=== PATIENT | male | born 1960 | race Caucasian/White ===

== ENCOUNTER → 2016-08-21 | Outpatient (CLI) | payer OTHER | END | disposition home or self-care (01) | LOC: C.LABMFLN 12:04 | PROVIDERS: ATTEND Family Medicine | DX: Z11.59 Encounter for screening for other viral diseases (principal) ==

== ENCOUNTER → 2016-12-17 | Outpatient (CLI) | payer OTHER ==
[2016-12-17 18:28] LABS: ALT/SGPT 49 U/L (12-78); BLOOD UREA NITROGEN 22 mg/dl (7-18); CALCIUM 9.4 mg/dl (8.5-10.1); CARBON DIOXIDE 29 mmol/L (21-32); CHLORIDE 97 mmol/L (98-107); GLUCOSE 312 mg/dl (70-99); POTASSIUM 4.4 mmol/L (3.5-5.1); SODIUM 129 mmol/L (136-145)
[2016-12-17 18:37] LABS: BETA-HYDROXYBUTYRATE 1.25 mg/dL (0.2-2.81)
[2016-12-17 18:59] LABS: RATIO 94.7 mcg/mg (0-30.0)
[2016-12-18 06:14] LABS: ESTIMATED AVERAGE GLUCOSE 243 mg/dl; HA1C FLAG Normal (Normal)
== END | disposition home or self-care (01) ==
LOC: C.LABMFLN 15:44
PROVIDERS: ATTEND Family Medicine
DX: Z00.00 Encounter for general adult medical examination without abnormal findings (principal); E78.01 Familial hypercholesterolemia; I10 Essential (primary) hypertension; E11.65 Type 2 diabetes mellitus with hyperglycemia

== ENCOUNTER 2020-04-25 17:38 | Inpatient (IN) ==
--- NOTE | 2020-04-25 18:31 | Emergency Department Note ---
Impression & Plan Atherosclerotic peripheral vascular disease with intermittent claudication, Left leg weakness, Numbness of left foot ED Provider Note Provider: Cal Bhat MD DATE OF SERVICE:04/25/2020 CHIEF COMPLAINT: Leg numbness and weakness HISTORY OF PRESENT ILLNESS: Patient is a 60-year-old gentleman history of type 2 diabetes, atrial fibrillation on Lovenox currently with recent coronavirus inf ection and SVT presenting here today referred by vascular surgery. Patient was evaluated on April 22 in the emergency department and was here for extended period overnight getting work-up for some left leg pain and some slight weakness with dorsiflexion. Patient states he was evaluated here overnight with multiple studies and sent home with follow-up with his PCP and then vascular. Patient s tates about 2 days ago he had worsening numbness of his left foot to the ankle and received a call today from his vascular surgeon advising him to come here for evaluation this morning and likely need for procedure for revascularization. Patient states compliant his Lovenox last at 10 AM this morning. He denies any trauma. States it does hurt a little bit when he stands the left heel but he says he cannot feel his left toes or front of his left foot. States he feels somewhat cool. States some achy pain in the left calf. Patient states his other extremities are doing okay. REVIEW OF SYSTEMS: A total of 10 review of systems was obtained and negative except as stated above in the HPI. PAST MEDICAL HISTORY: As noted above MEDICATIONS: Reviewed home medication list. On Lovenox. SOCIAL HISTORY: Non-smoker. Lives at home. PHYSICAL EXAM: GENERAL: alert and oriented in no acute distress on stretcher Head: normocephalic and atraumatic EYES: No injection, discharge or icterus. NECK: Trachea midline. Supple. LUNGS: Airway patent. No retractions. Breath sounds clear with good air entry bilaterally. HEART: Irregular rate and rhythm SKIN: Acyanotic, warm, dry, without rashes EXTREMITIES: Right upper extremity is mildly swollen diffusely. Right lower extremity without significant swelling or tenderness. Left lower extremity with numbness fairly circumferentially from the distal left calf and to the left foot. There is some decreased capillary refill in the left toes. There is no dopplerable or palpable DP or PT pulses of the left foot. No open wound or black or ischemic findings are noted. NEUROLOGICAL:No aphasia. No facial droop or slurred speech. Patient again has some decreased sensation in the left foot to the distal left leg as above. The other extremities without significant neuropathy appreciated. Patient does have some limited to no movement of the toes at this time but 3/5 strength with plantar flexion of the left foot. 1/5 strength with dorsiflexion. EK bpm in atrial fibrillation without PVC noted. No acute ST segment elevation or significant depression is noted. QRS within normal interval limits. CONTINUOUS CARDIAC MONITORING: was ordered and showed a heart rate of 98 bpm in atrial fibrillation Patient's laboratory studies and imaging reviewed. Differential includes DVT, vascular abnormality, musculoskeletal, infection, joint effusion, trauma, lymphedema, idiopathic, CHF, as well as other pathologies. IMPRESSION/MEDICAL DECISION MAKING: Reviewed medical record and multiple studies from 3 days ago. Patient was evaluated with multiple laboratory tests and studies including venous and arterial ultrasound of the left lower leg as well as CTs and brain MRI. Negative brain MRI for acute intracranial abnormality. There was some discussion due to decreased flow in the left arterial waveforms and it appears from records this was discussed with Dr. Ma of interventional cardiology and was referred for outpatient follow-up. Patient now states increasing numbness and some coolness of his foot and vascular surgery, Dr. Hidalgo, reviewed request from his PCPs office for his complaint and referred him here today for likely revascularization tomorrow. Patient does not have significant dopplerable pulses at this time and some decreased capillary refill of the left foot. There is no evidence of gangrene or open wound. There is no crepitus appreciated. Basic labs and preop studies were completed and a repeat Covid test given his recent positive status was ordered in anticipation of procedure. Did call and discussed with Dr. Hidalgo of vascular surgery the findings on exam here today including discussing his numbness and undopplerable pulses in his left lower leg at this point. He requested a heparin drip be started and the patient admitted made n.p.o. overnight for procedure in the morning. Patient s tates compliance with his home Lovenox and in discussion with pharmacy will start a no bolus heparin drip. A type and screen was sent to the lab. Covid test here was negative. No significant leukocytosis or anemia is noted. Patient has no other significant complaint at this time of other neurological deficit. There is no traumatic findings no believe x-ray be indicated this time. Do not feel antibiotics indicated & I doubt there is any acute infection. DIAGNOSIS: Peripheral vascular atherosclerotic disease of the left lower extremity, left foot numbness, left leg weakness DISPOSITION: Hospitalist will evaluate Patient was agreeable with this plan. Past Med/Surg History Medical History Acute kidney injury Allergic rhinitis Anticoagulant long-term use Arteriosclerosis of coronary artery Atrial fibrillation Benign essential hypertension Chronic insomnia Diabetes mellitus type 2, uncontrolled Dyslipidemia Dyspnea on exertion Essential familial hypercholesterolemia Insomnia Poorly controlled blood pressure Testicular mass Surgical History (Updated 05/10/19 @ 13:15 by Essie Su MA) No pertinent past surgical history Family History (Updated 11/19/18 @ 14:03 by Sherry Muhammad) Father Cardiovascular disease Diabetes Hypertension Sister Cardiovascular disease Grandmother Diabetes Hypertension Social History Smoking Status: Never smoker Age Started Using Tobacco: 18; Age Quit Using Tobacco: 46; Second Hand Exposure: No; Hx Alcohol Use: No Hx Substance Use: No Preferred Language: Romanian Communication Ability: Effective Forensic Anthropologist Required: No marital status: Current Living Situation: Spouse Feels Safe at Home: Yes Childhood Exposure to Second-Hand Smoke: Yes Seatbelt Use: sometimes Sunscreen Use: No Allergies Allergies Allergy/AdvReac Type Severity Reaction Status Date / Time pravastatin AdvReac Unknown Muscle Verified 04/22/20 23:30 Tightness simvastatin AdvReac Unknown Muscle Verified 04/22/20 23:30 Tightness Home Meds Home Medications Medication Instructions Recorded Confirmed aspirin [Aspirin Low Dose] 81 mg PO DAILY 04/18/20 04/22/20 Previous Rx's Medication Instructions Recorded enoxaparin [Lovenox] 120 mg SUBCUT Q12H 14 Days #22.4 ml 04/18/20 tramadol 50 mg tablet 50 mg PO TID PRN #15 tab 04/20/20 diltiazem HCl 240 mg 240 mg PO QAM #30 cap 04/21/20 capsule,extended release 24 hr, controlled insulin NPH isoph U-100 human 100 20 - 40 unit SUBCUT BID #15 ml 04/21/20 unit/mL (3 mL) subcutaneous pen insulin regular human 100 unit/mL 10 - 30 unit SUBCUT TID #10 ml 04/21/20 injection solution lisinopril 20 mg tablet 20 mg PO BID #30 tab 04/21/20 metoprolol tartrate 100 mg tablet 100 mg PO BID #60 tab 04/21/20 warfarin 5 mg tablet See Rx Instructions .ROUTE 04/21/20 .COMPLEX #45 tab Results & Data (ED) Vital Signs Vital Signs - 24 hr 04/25/20 17:40 04/25/20 18:41 04/25/20 19:08 Temperature 36.6 C Temperature Source Oral Pulse Rate 101 H 103 H 96 H Pulse Rate from SpO2 Sensor 106 H 101 H Respiratory Rate 18 20 21 Respiratory Effort / Characteristics Non-Labored Respiratory Depth Normal Blood Pressure 121/77 141/75 H Blood Pressure Mean 91 90 Pulse Oximetry 94 94 93 Oxygen Delivery Method Room Air Room Air Sepsis Recent Fever Within 48 Hours No Sepsis New/Unexplained Change in Mental Status No Sepsis Action Taken by Nursing No Action Required Laboratory Data Result diagrams: 04/25/20 18:56 04/25/20 18:56 Lab Results 04/25/20 04/25/20 04/25/20 Range/Units 18:30 18:56 18:56 WBC 8.43 (4.8-10.8) K/uL RBC 4.86 (4.7-6.1) M/uL Hgb 13.9 L (14.0-18.0) g/dL Hct 40.6 L (42-52) % MCV 83.5 (80-100) fL MCH 28.6 (25-34) pg MCHC 34.2 (32-36) g/dL RDW Std Deviation 41.5 (36.4-46.3) fL RDW Coeff of Scott 13.6 (11.5-14.5) % Plt Count 265 (130-400) K/uL MPV 10.1 (7.4-10.4) fL Immature Gran % (Auto) 0.2 % Neut % (Auto) 69.4 % Lymph % (Auto) 15.1 % Eddy % (Auto) 14.0 % Eos % (Auto) 1.1 % Baso % (Auto) 0.2 % Neut # (Auto) 5.85 (1.4-6.5) K/uL Lymph # (Auto) 1.27 (1.2-3.4) K/uL Eddy # (Auto) 1.18 H (0.11-0.59) K/uL Eos # (Auto) 0.09 (0-0.5) K/uL Baso # (Auto) 0.02 (0-0.2) K/uL Immature Gran # (Auto) 0.02 (0.00-0.02) K/uL PT 10.3 (9.0-12.0) Seconds INR 1.0 (0.9-1.1) APTT 31.6 H (21.0-31.0) Seconds PTT Ratio 1.1 SARS-CoV-2 Ag (Rapid) Negative (Negative) Administered Medications Heparin Sodium/Dextrose (Heparin Sodium/Dextrose) 25,000 units in 500 mls @ 0.02 mls/hr IV .Q24H [facility]; Protocol Stop: 05/25/20 18:29 Last Admin: 04/25/20 19:06 Dose: 1,750 units/hr, 35 mls/hr Documented by: [id number] Cosigned by: [id number] Discharge Plan Visit Data Chief Complaint: Leg Injury/Pain Stated Complaint: L LEG PAIN, DR REF ED Provider: Cal Bhat Discharge Problem: Atherosclerotic peripheral vascular disease with intermittent claudication, Left leg weakness, Numbness of left foot Forms Stand Alone Forms: My [facility] [employer] Prescriptions Prescriptions: No Action tramadol 50 mg tablet 50 mg PO TID PRN (Reason: severe pain) Qty: 15 RF: 0 diltiazem HCl [DILT-XR] 240 mg capsule,ext.rel 24h degradable 240 mg PO QAM Qty: 30 RF: 5 Humulin N NPH Insulin KwikPen 100 unit/mL (3 mL) insulin pen 20 - 40 unit SUBCUT BID Qty: 15 RF: 5 Novolin R Regular U-100 Insuln 100 unit/mL solution 10 - 30 unit subcut TID Qty: 10 RF: 5 lisinopril 20 mg tablet 20 mg PO BID Qty: 30 RF: 5 metoprolol tartrate 100 mg tablet 100 mg PO BID Qty: 60 RF: 5 warfarin 5 mg tablet See Rx Instructions .ROUTE .COMPLEX Qty: 45 RF: 0 aspirin [Aspirin Low Dose] 81 mg Tablet,Delayed Release (Dr/Ec) 81 mg PO DAILY RF: 0 enoxaparin [Lovenox] 120 mg/0.8 mL syringe 120 mg subcut Q12H 14 Days Qty: 22.4 RF: 0 Referrals Referrals: Nadir Lowry MD [Primary Care Provider] -
[2020-04-25] MEDS: HEPARIN SODIUM/DEXTROSE 25,000 UNITS/500 ML BAG IV SCH (19:06)
[2020-04-25 19:08] LABS: Basophils # (auto) 0.02 K/uL (0-0.2); Basophils % (auto) 0.2 %; Eosinophils # (auto) 0.09 K/uL (0-0.5); Eosinophils % (auto) 1.1 %; Hematocrit (blood only) 40.6 % (42-52); Hemoglobin 13.9 g/dL (14.0-18.0); Immature Granulocytes # (auto) 0.02 K/uL (0.00-0.02); Immature Granulocytes % (auto) 0.2 %; Lymphocytes # (auto) 1.27 K/uL (1.2-3.4); Lymphocytes % (auto) 15.1 %; Mean Corpuscular Hemoglobin 28.6 pg (25-34); Mean Corpuscular Hgb Conc 34.2 g/dL (32-36); Mean Corpuscular Volume 83.5 fL (80-100); Mean Platelet Volume 10.1 fL (7.4-10.4); Monocytes # (auto) 1.18 K/uL (0.11-0.59); Neutrophils # (auto) 5.85 K/uL (1.4-6.5); Neutrophils % (auto) 69.4 %; Platelet Count 265 K/uL (130-400); RDW Coefficient of Variation 13.6 % (11.5-14.5); RDW Standard Deviation 41.5 fL (36.4-46.3); Red Blood Count 4.86 M/uL (4.7-6.1); White Blood Count 8.43 K/uL (4.8-10.8)
[2020-04-25 19:23] LABS: Partial Thromboplastin Ratio 1.1; Partial Thromboplastin Time 31.6 Seconds (21.0-31.0); Prothrombin Time 10.3 Seconds (9.0-12.0)
[2020-04-25 19:24] LABS: BUN Creatinine Ratio 19.7 (10-20); Calcium 9.4 mg/dl (8.5-10.1); Creatinine Clr Calc Pharmacy 86.9 ml/min; Est GFR (African American) 71.7; Est GFR (Non-African American) 61.9; Potassium 4.3 mmol/L (3.5-5.1)
[2020-04-25 19:27] LABS: Albumin Globulin Ratio 0.6 (0.9-2); Bilirubin,Total 0.4 mg/dl (0.2-1); Globulin 4.7 gm/dl (2.5-4.0); Total Protein 7.7 gm/dl (6.4-8.2)
--- NOTE | 2020-04-25 20:01 | XRay Report ---
XR chest 1V portable HISTORY: leg numbness, recent covid COMPARISON: None. FINDINGS: Cardiac silhouette is mildly enlarged. No pneumothorax. No pleural effusions. There are pat nawaf peripheral airspace opacities within the bilateral mid to lower lung zones. This likely represent s a viral pneumonia. No evidence for pulmonary edema. IMPRESSION: 1. Patchy peripheral airspace opacities within the bilateral mid to lower lung zones. This likely rep resents a viral pneumonia. 2. Mild cardiomegaly. ACT 112: Negative or not required by law. Electronically signed by: Ciro Ramsey M.D. 04/25/2020 7:59 PM
--- NOTE | 2020-04-25 21:27 | History & Physical Report ---
Date of Service April 25, 2020 Assessment & Plan (1) Atherosclerotic peripheral vascular disease with intermittent claudication: Suspected acute thrombus given acuity of symptoms, atrial fibrillation and hypercoagulable state. IV heparin overnight. NPO after midnight. Consult vascular surgery in AM (2) Numbness of left foot: Secondary to arterial occlusion. (3) Foot drop, left: Suspect due to ischemia of peroneal nerve causing his foot drop. Dutch need PT following revascularization. (4) Diabetes mellitus type 2, uncontrolled: HbA1C with AM labs Consult pharmacy for glycemic control (5) Benign essential hypertension: Continue metoprolol tartrate and diltiazem Will hold lisinopril to allow slightly higher blood pressure to aid perfusion at the present time. (6) Atrial fibrillation: Continue rate control with diltiazem and metoprolol IV heparin for anticoagulation Admission and Anticipated Discharge Date Admission Date: 04/25/2020 History of Present Illness Chief Complaint: Left leg pain Primary Care Provider: Nadir Lowry MD Luis E Bush is a 60 year old male with T2DM, atrial fibrillation, recent diagnosis of DVT, COVID-19 who presents to the ER with Left foot pain with concern for ischemia by his PCP on recent US arterial doppler imaging performed on ER visit 3 days ago. His PCP called Dr Hidalgo from vascular surgery who on review of his imaging recommended admission. He has a recent history of COVID-19 that was diagnosed on April 07. He was admitted to [facility] for a week with respiratory symptoms and diagnosed with pneumonia discharged with IV antibiotics through a midline in his right arm. He subsequently came to the ER here on April 18 due to pain and swelling in his right arm and right thigh. Subsequent US venous dopplers showed long segment occlusive superficial venous thrombus of the basilic and superficial venous thrombus of the greater saphenous veins (extends into junction with the common femoral vein). The patient was therapeutic with warfarin at the time therefore his case was discussed with Dr Suresh and recommended switching from warfarin to lovenox for 2 weeks then switching back to warfarin. His midline was removed, however 4 days later he returned to the ER with concern for left leg pain. US arterial doppler was performed at that time which was concerning for an occlusion of the left mid left superficial femoral artery with low velocity monophasic reconstitution. However his symptoms were felt to be more neurological and main symptom of a foot drop rather than ischemia. His case was discussed with the vascular student services counselor at the time but given his sympto ms of foot drop and not a cold foot it was suspected to be more chronic. On follow up with his PCP today his symptoms appear to be more ischemic. He reports after discharge from the ER his left leg has continued to have intermittent left leg pain getting progressively worse, worse on exertion from left hamstring but especially in his left calf. He notes movement of his left foot has become worse since he was seen in the ER especially with dorsiflexion. Left foot is cool to touch. In the ER he had a rapid COVID-19 test which was negative. Despite CXR findings he is > 14 days out from his original positive test and had symptoms for approximately 10 days prior to this. Allergies Allergy/AdvReac Type Severity Reaction Status Date / Time pravastatin AdvReac Unknown Muscle Verified 04/22/20 23:30 Tightness simvastatin AdvReac Unknown Muscle Verified 04/22/20 23:30 Tightness Home Medications Medication Instructions Recorded Confirmed Type aspirin [Aspirin Low Dose] 81 mg PO DAILY 04/18/20 04/25/20 History enoxaparin [Lovenox] 120 mg SUBCUT Q12H 14 Days #22.4 ml 04/18/20 04/25/20 Rx tramadol 50 mg tablet 50 mg PO TID PRN #15 tab 04/20/20 04/25/20 Rx diltiazem HCl 240 mg 240 mg PO QAM #30 cap 04/21/20 04/25/20 Rx capsule,extended release 24 hr, controlled insulin NPH isoph U-100 human 100 20 - 40 unit SUBCUT BID #15 ml 04/21/20 04/25/20 Rx unit/mL (3 mL) subcutaneous pen insulin regular human 100 unit/mL 10 - 30 unit SUBCUT TID #10 ml 04/21/20 04/25/20 Rx injection solution lisinopril 20 mg tablet 20 mg PO BID #30 tab 04/21/20 04/25/20 Rx metoprolol tartrate 100 mg tablet 100 mg PO BID #60 tab 04/21/20 04/25/20 Rx warfarin 0 mg PO .UD 04/25/20 04/25/20 History Past Med/Surg History Medical History Acute kidney injury Allergic rhinitis Anticoagulant long-term use Arteriosclerosis of coronary artery Atrial fibrillation Benign essential hypertension Chronic insomnia Diabetes mellitus type 2, uncontrolled Dyslipidemia Dyspnea on exertion Essential familial hypercholesterolemia Insomnia Poorly controlled blood pressure Testicular mass Surgical History No pertinent past surgical history Family History Father Cardiovascular disease Diabetes Hypertension Sister Cardiovascular disease Grandmother Diabetes Hypertension Social History Smoking Status: Former smoker Age Started Using Tobacco: 18; Age Quit Using Tobacco: 46; Second Hand Exposure: No; Do You Dip or Chew Tobacco: No; Hx Alcohol Use: No Hx Substance Use: No Preferred Language: Kazakh Communication Ability: Effective Green Meat Packer Required: No Beliefs That Will Affect Care: None marital status: Current Living Situation: Alone Other Information That Helps Us Care for You: No Feels Safe at Home: Yes Safety Concerns: Feels Safe At This Time Childhood Exposure to Second-Hand Smoke: Yes Seatbelt Use: sometimes Sunscreen Use: No Assistive Devices: None Review of Systems Review of Systems: All systems reviewed & are unremarkable except as noted in HPI & below Physical Exam Constitutional: well developed and well nourished; no acute distress Eyes: + anicteric sclerae; normal pupil size ENMT: external ear and nose normal, oropharynx normal Neck: trachea midline Respiratory: normal respiratory effort Auscultation: + crackles (bibasal); no rales, no rhonchi and no wheezes Cardiovascular: Rate/Rhythm: regular rate and + irregularly irregular Heart Sounds: no murmur Vessels: + posterior tibial pulses abnormal (left) and + dorsalis pedis pulses abnormal (left) Extremities: + calf tenderness (Left calf); + abnormal capillary refill (Left toes 10 seconds, right 4-5 seconds) and no pedal edema Gastrointestinal (Abdomen): Inspection/Auscultation: normal bowel sounds Percussion/Palpation: abdomen soft; abdomen nontender, no guarding and abdomen not rigid Musculoskeletal: Left foot cool to touch. Limited movements and strength in all directions but mostly limited dorsiflexion with 3/5 power. Left knee flex/ext 5/5 Left hip flex 5/5. Skin: Cool left foot Neurologic: + focal motor deficit (Left foot drop as noted above) and awake; not confused Speech / Cognition: normal speech Psychiatric: A+Ox3, euthymic affect Results & Data Results & Data ([facility]) Vital Signs (Past 12 Hours) Vital Signs Temp Pulse Resp BP Pulse Ox 04/25/20 21:00 103 H 19 134/91 93 04/25/20 20:30 92 H 18 141/90 H 94 04/25/20 20:00 122 H 15 135/93 96 04/25/20 19:08 96 H 21 141/75 H 93 04/25/20 18:41 103 H 20 94 04/25/20 17:40 36.6 C 101 H 18 121/77 94 Diagnostic Findings XR chest 1V portable IMPRESSION: 1. Patchy peripheral airspace opacities within the bilateral mid to lower lung zones. This likely represents a viral pneumonia. 2. Mild cardiomegaly. ECG Indication: other (irregular rhythm) Rate (beats per minute): 94 Rhythm: atrial fibrillation Findings: + other (q waves in inferior leads); no acute ischemic change Comparison ECG Date: from (April 22, 2020) Change: the following changes noted Code Status & VTE Plan Code Status Full VTE Prophylaxis Plan VTE Prophylaxis will be ordered: Yes PG Care Time/CCT Total # of Minutes Spent Total Time Spent with Patient: Total time spent is greater than 50% in coordination of care (as documented) at patient's floor/unit and/or counseling patient: Coding Level of Care Code 79554 Initial Inpt Care Lvl 3 Diagnoses Atherosclerotic peripheral vascular disease with intermittent claudication I70.219 Numbness of left foot R20.8 Foot drop, left M21.372 Diabetes mellitus type 2, uncontrolled E11.65 Benign essential hypertension I10 Atrial fibrillation I48.91
[2020-04-25] MEDS ORDERED: Heparin IV Standard *NO* Bolus ONE (22:00)
[2020-04-25] MEDS ORDERED: CARBOHYDRATES FOR HYPOGLYCEMIA PO PRN (23:30)
[2020-04-25] MEDS ORDERED: DEXTROSE 50% 50 ML SYRINGE IV PRN (23:30)
[2020-04-25] MEDS ORDERED: GLUCAGON FOR INJ 1 MG VIAL SQ PRN (23:30)
[2020-04-25] MEDS ORDERED: PHARMACY GLYCEMIC MGMT CONSULT PRN (23:30)
[2020-04-25] MEDS ORDERED: GLUCOSE 10 TABS/TUBE PO PRN (23:30)
[2020-04-25] MEDS ORDERED: GLUCOSE 40% GEL 15 GM TUBE PO PRN (23:30)
[2020-04-25] MEDS ORDERED: INSULIN GLARGINE SOLOSTAR 100 UNITS/ML 3 ML PEN SC ONE (23:45)
[2020-04-26] MEDS: METOPROLOL TARTRATE 100 MG TAB PO SCH ×3 (00:27→21:10)
[2020-04-26] MEDS: INSULIN ASPART 100 UNITS/ML 3 ML PEN SC SCH ×7 (00:47→21:05)
[2020-04-26 01:17] LABS: Partial Thromboplastin Ratio 1.5; Partial Thromboplastin Time 42.3 Seconds (21.0-31.0)
[2020-04-26] MEDS: dilTIAZem HCL 240 MG CAPCR PO SCH (07:44)
[2020-04-26] MEDS: ASPIRIN 81 MG ECTAB PO SCH (08:15)
--- NOTE | 2020-04-26 08:33 | Consultation ---
Date of Consultation April 26, 2020 Assessment & Plan (1) Ischemic pain of left foot: Patient with a left popliteal occlusion which was acute when it occurred. Recommend left lower extremity arteriography with possible embolectomy and intervention. If not able to open the popliteal artery then a bypass will be needed. I have discussed the risks options and benefits of the procedure with the patient. The patient understands the risks options and benefits and agrees to the procedure. History of Present Illness Reason for Consultation: Left foot numbess and weakness with pain. Attending Physician: Blela Fall DO History of Present Illness Patient is a 60 year old male who presented to the ED 4 days prior to this with pain, numbness, and weakness of the left foot. Duplex done at that time showed a left popliteal artery occlusion with flat waveforms at the pedal arteries. Since then his numbess and weakness has worsened as well as paraesthesias of the left foot. He does have rest pain on occassion. He denies any previous history of claudication. He was recently admitted to [facility] with COVID and was positive on Apr 14. At that time he developed a right arm venous thrombosis. He also has a history of a fib. He denies any previous history of embolization. He was on lovenox prior to admission. He does not smoke but is diabetic. His covid test on this admission is neg on a rapid test. Allergies Allergy/AdvReac Type Severity Reaction Status Date / Time pravastatin AdvReac Unknown Muscle Verified 04/22/20 23:30 Tightness simvastatin AdvReac Unknown Muscle Verified 04/22/20 23:30 Tightness Home Medications Medication Instructions Recorded Confirmed Type aspirin [Aspirin Low Dose] 81 mg PO DAILY 04/18/20 04/25/20 History enoxaparin [Lovenox] 120 mg SUBCUT Q12H 14 Days #22.4 ml 04/18/20 04/25/20 Rx tramadol 50 mg tablet 50 mg PO TID PRN #15 tab 04/20/20 04/25/20 Rx diltiazem HCl 240 mg 240 mg PO QAM #30 cap 04/21/20 04/25/20 Rx capsule,extended release 24 hr, controlled insulin NPH isoph U-100 human 100 20 - 40 unit SUBCUT BID #15 ml 04/21/20 04/25/20 Rx unit/mL (3 mL) subcutaneous pen insulin regular human 100 unit/mL 10 - 30 unit SUBCUT TID #10 ml 04/21/20 04/25/20 Rx injection solution lisinopril 20 mg tablet 20 mg PO BID #30 tab 04/21/20 04/25/20 Rx metoprolol tartrate 100 mg tablet 100 mg PO BID #60 tab 04/21/20 04/25/20 Rx warfarin 0 mg PO .UD 04/25/20 04/25/20 History Patient History Medical History Acute kidney injury Allergic rhinitis Anticoagulant long-term use Arteriosclerosis of coronary artery Atrial fibrillation Benign essential hypertension Chronic insomnia Diabetes mellitus type 2, uncontrolled Dyslipidemia Dyspnea on exertion Essential familial hypercholesterolemia Insomnia Poorly controlled blood pressure Testicular mass Surgical History No pertinent past surgical history Family History Father Cardiovascular disease Diabetes Hypertension Sister Cardiovascular disease Grandmother Diabetes Hypertension Social History Smoking Status: Former smoker Age Started Using Tobacco: 18; Age Quit Using Tobacco: 46; Second Hand Exposure: No; Do You Dip or Chew Tobacco: No; Hx Alcohol Use: No Hx Substance Use: No Preferred Language: Greenlandic Communication Ability: Effective Train Brake Operator Required: No Beliefs That Will Affect Care: None marital status: Current Living Situation: Alone Other Information That Helps Us Care for You: No Feels Safe at Home: Yes Safety Concerns: Feels Safe At This Time Childhood Exposure to Second-Hand Smoke: Yes Seatbelt Use: sometimes Sunscreen Use: No Assistive Devices: None Review of Systems Review of Systems: All systems reviewed & are unremarkable except as noted in HPI & below Physical Exam Respiratory: normal respiratory effort, lungs clear to auscultation Cardiovascular: Rate/Rhythm: + irregularly irregular Vessels: femoral pulses present, posterior tibial pulses present (none on left) and dorsalis pedis pulses present (none on left) Extremities: + abnormal capillary refill (mardedly decreased on left) Gastrointestinal (Abdomen): normal bowel sounds, soft, nontender, no hepatosplenomegaly Musculoskeletal: Extremities: extremities normal to inspection (except for decreased cap refill on left) and + abnormal strength (decreased strength left foot) Skin: + pallor (slight pallor left foot) Neurologic: CN's II-XI intact bilaterally and moves all extremities decreased sensation left foot to ankle Psychiatric: Orientation: alert and oriented x 3 Results & Data ([facility]) Vital Signs (Past 12 Hours) Vital Signs Temp Pulse Pulse Resp BP BP Pulse Ox 04/26/20 08:00 36.6 C 106 H 20 153/111 H 95 04/26/20 07:00 92 H 04/26/20 04:02 36.9 C 77 20 142/89 H 93 04/26/20 03:00 96 H 04/26/20 00:08 36.7 C 89 18 146/73 H 95 04/25/20 22:30 90 22 144/74 H 94 04/25/20 22:00 104 H 17 134/80 95 04/25/20 21:30 99 H 18 157/91 H 92 04/25/20 21:00 103 H 19 134/91 93 04/25/20 20:30 92 H 18 141/90 H 94
[2020-04-26] MEDS ORDERED: LIDOCAINE HCL 1% 20 ML VIAL ONE ×2 (08:38→08:42)
[2020-04-26] MEDS ORDERED: PAPAVERINE HCL INJ 30 MG/ML 2 ML VIAL ONE (08:42)
[2020-04-26] MEDS ORDERED: BUPIVACAINE/EPINEPHRINE 0.5% MPF 1:200,000 30 ML VIAL ONE (08:42)
[2020-04-26] MEDS ORDERED: THROMBIN 5000 UNITS KIT ONE (08:42)
[2020-04-26] MEDS ORDERED: HEPARIN (PORCINE) 1000 UNIT/ML 10 ML (CATH LAB USE ONLY) ONE (08:42)
[2020-04-26] MEDS ORDERED: GELATIN SPONGE SZ 100 ONE (08:43)
[2020-04-26] MEDS ORDERED: THROMBIN FOR SOLN 20000 UNIT KIT ONE (08:48)
[2020-04-26 09:24] LABS: Partial Thromboplastin Ratio 1.6
[2020-04-26] MEDS ORDERED: ePHEDrine sulfate 50 MG/ML AMP ONE (09:25)
[2020-04-26] MEDS ORDERED: MIDAZOLAM HCL 1 MG/ML 2ML VIAL ONE (09:25)
[2020-04-26] MEDS ORDERED: PROTAMINE SULFATE 10 MG/ML 5 ML VIAL ONE (09:25)
[2020-04-26] MEDS ORDERED: ePHEDrine sulfate 50 MG/ML SYR ONE (09:25)
[2020-04-26] MEDS ORDERED: PHENYLEPHRINE HCL 10 MG/ML VIAL ONE (09:25)
[2020-04-26] MEDS ORDERED: NEOSTIGMINE METHYLSULFATE 5 MG/5 ML SYR ONE (09:25)
[2020-04-26] MEDS ORDERED: DEXAMETHASONE SOD INJ 4 MG/ML VIAL ONE (09:25)
[2020-04-26] MEDS ORDERED: fentaNYL citrate 100 MCG/2 ML VIAL ONE (09:25)
[2020-04-26] MEDS ORDERED: ONDANSETRON INJ 2 MG/ML 2 ML VIAL ONE (09:25)
[2020-04-26] MEDS ORDERED: ROCURONIUM BROMIDE 10 MG/ML 5 ML VIAL IV ONE (09:25)
[2020-04-26] MEDS ORDERED: PROPOFOL IV EMULSION 10 MG/ML 20 ML VIAL IV ONE ×2 (09:25→13:07)
[2020-04-26] MEDS ORDERED: LIDOCAINE HCL 2% 2 ML VIAL/AMP(20MG/ML) INFIL ONE (09:25)
[2020-04-26] MEDS ORDERED: GLYCOPYRROLATE 0.2 MG/ML VIAL ONE (09:25)
[2020-04-26] MEDS ORDERED: HEPARIN SOD (PORCINE) 1000 UNIT/ML 10 ML VIAL ONE (09:25)
[2020-04-26 09:29] LABS: Partial Thromboplastin Time 45.9 Seconds (21.0-31.0)
[2020-04-26 09:34] LABS: BUN Creatinine Ratio 17.1 (10-20); Calcium 9.3 mg/dl (8.5-10.1); Creatinine Clr Calc Pharmacy 95.9 ml/min; Est GFR (African American) 80.9; Est GFR (Non-African American) 69.8; Potassium 4.3 mmol/L (3.5-5.1)
[2020-04-26 09:36] LABS: Basophils # (auto) 0.02 K/uL (0-0.2); Basophils % (auto) 0.3 %; Eosinophils # (auto) 0.14 K/uL (0-0.5); Eosinophils % (auto) 1.8 %; Hematocrit (blood only) 41.9 % (42-52); Hemoglobin 14.1 g/dL (14.0-18.0); Immature Granulocytes # (auto) 0.01 K/uL (0.00-0.02); Immature Granulocytes % (auto) 0.1 %; Lymphocytes # (auto) 1.38 K/uL (1.2-3.4); Lymphocytes % (auto) 18.2 %; Mean Corpuscular Hemoglobin 28.5 pg (25-34); Mean Corpuscular Hgb Conc 33.7 g/dL (32-36); Mean Corpuscular Volume 84.6 fL (80-100); Mean Platelet Volume 10.1 fL (7.4-10.4); Monocytes # (auto) 0.84 K/uL (0.11-0.59); Monocytes % (auto) 11.1 %; Neutrophils # (auto) 5.18 K/uL (1.4-6.5); Neutrophils % (auto) 68.5 %; Platelet Count 265 K/uL (130-400); RDW Coefficient of Variation 13.7 % (11.5-14.5); Red Blood Count 4.95 M/uL (4.7-6.1); White Blood Count 7.57 K/uL (4.8-10.8)
[2020-04-26] MEDS: HEPARIN SODIUM/DEXTROSE 25,000 UNITS/500 ML BAG IV SCH ×3 (09:38→23:11)
[2020-04-26 10:34] LABS: Estimated Average Glucose 203 mg/dl; Hemoglobin A1C 8.7 % (4.5-5.6)
[2020-04-26] MEDS ORDERED: ONDANSETRON INJ 2 MG/ML 2 ML VIAL IV PRN ×2 (11:50→14:16)
[2020-04-26] MEDS ORDERED: ATROPINE SULFATE 0.1 MG/ML 10ML SYR IV PRN (11:50)
[2020-04-26] MEDS ORDERED: fentaNYL citrate 100 MCG/2 ML VIAL IV PRN (11:50)
[2020-04-26] MEDS ORDERED: ePHEDrine sulfate 50 MG/ML AMP IV PRN (11:50)
--- NOTE | 2020-04-26 11:50 | Anesthesiology Consultation ---
Date of Service April 26, 2020 Assessment & Plan (1) Encounter for pre-operative examination: Chart Review Chart Review: Acceptable Risk for Surgery and Patient NOT seen in Pre Admission Testing Consults Requested none ASA ASA4 Proposed Anesthesia Risk / Benefits Reviewed With: PT / POA / Parent / Guardian, Accepts Plan and Informed Consent Obtained History Surgery Operation Date: 04/26/20 07:45 Proposed Procedures p Left Leg Angiogram Possible Intervention - Regis Hidalgo MD s Posssible Left Leg Femoral Bypass - Regis Hidalgo MD Height/Weight Height: 6 ft 1 in Weight: 122.3 kg Allergies Allergy/AdvReac Type Severity Reaction Status Date / Time pravastatin AdvReac Unknown Muscle Verified 04/22/20 23:30 Tightness simvastatin AdvReac Unknown Muscle Verified 04/22/20 23:30 Tightness Medications Home Medications Medication Instructions Recorded Confirmed Last Taken aspirin [Aspirin Low Dose] 81 mg PO DAILY 04/18/20 04/25/20 04/22/20 enoxaparin [Lovenox] 120 mg SUBCUT Q12H 14 Days #22.4 ml 04/18/20 04/25/20 04/25/20 09:00 tramadol 50 mg tablet 50 mg PO TID PRN #15 tab 04/20/20 04/25/20 Unknown diltiazem HCl 240 mg 240 mg PO QAM #30 cap 04/21/20 04/25/20 04/22/20 capsule,extended release 24 hr, controlled insulin NPH isoph U-100 human 100 20 - 40 unit SUBCUT BID #15 ml 04/21/20 04/25/20 04/22/20 unit/mL (3 mL) subcutaneous pen insulin regular human 100 unit/mL 10 - 30 unit SUBCUT TID #10 ml 04/21/20 04/25/20 04/22/20 injection solution lisinopril 20 mg tablet 20 mg PO BID #30 tab 04/21/20 04/25/20 04/22/20 metoprolol tartrate 100 mg tablet 100 mg PO BID #60 tab 04/21/20 04/25/20 04/22/20 warfarin 0 mg PO .UD 04/25/20 04/25/20 Unknown Active Medications Generic Name Dose Route Start Last Admin Trade Name Freq PRN Reason Stop Dose Admin Aspirin 81 mg 04/26/20 09:00 04/26/20 08:15 Aspirin 81 Mg Ectab PO 05/26/20 08:59 81 mg DAILY TATA Administration Diltiazem HCl 240 mg 04/26/20 09:00 04/26/20 07:44 Diltiazem Hcl 240 Mg Capcr PO 05/26/20 08:59 240 mg QAM TATA Administration Heparin Sodium/Dextrose 25,000 units in 500 mls @ 37 mls/hr 04/25/20 18:30 04/26/20 09:38 Heparin Sodium/Dextrose IV 05/25/20 18:29 1,850 units/hr .[id number] TATA 37 mls/hr Administration Protocol 1,850 UNITS/HR Cefazolin Sodium 65 mls @ 130 mls/hr 04/26/20 06:00 04/26/20 10:48 Ancef 3000mg IV 04/26/20 16:00 130 mls/hr PREOP TATA Administration Protocol Insulin Aspart 0 units 04/25/20 23:45 04/26/20 08:30 Insulin Aspart 100 Units/Ml 3 Ml Pen SC 05/25/20 23:44 Not Given Q4 TATA Metoprolol Tartrate 100 mg 04/25/20 23:10 04/26/20 07:44 Metoprolol Tartrate 100 Mg Tab PO 05/25/20 23:09 100 mg BID TATA Administration NPO Date Last Intake of Fluids: 04/25/20 Time Last Intake of Fluids: 17:00 Date Last Intake of Solids: 04/25/20 Time Last Intake of Solids: 17:00 Past Medical History Medical History Acute kidney injury Allergic rhinitis Anticoagulant long-term use Arteriosclerosis of coronary artery Atrial fibrillation Benign essential hypertension Chronic insomnia Diabetes mellitus type 2, uncontrolled Dyslipidemia Dyspnea on exertion Essential familial hypercholesterolemia Insomnia Poorly controlled blood pressure Testicular mass Exercise / Class Metabolic Activity II 4-5 Yardwork/Stairs/Walk up hill Past Family History Family History Father Cardiovascular disease Diabetes Hypertension Sister Cardiovascular disease Grandmother Diabetes Hypertension Past Surgical History Surgical History No pertinent past surgical history Past Anesthesia History No Hx of Anesthesia Complications and No Family Hx of Anesthesia Complications History of PONV No Hx of PONV and No Hx of Motion Sickness Social History Smoking Status: Former smoker tobacco type: cigarettes Do You Dip or Chew Tobacco: No Hx Alcohol Use: No Hx Substance Use: No substance use type: does not use Physical Exam Vital Signs Last Vital Signs Temp 36.9 C 04/26/20 09:57 Pulse 92 H 04/26/20 09:57 Resp 20 04/26/20 09:57 BP 145/96 H 04/26/20 09:57 Pulse Ox 94 04/26/20 09:57 ENMT Mouth: no dentition abnormality Thyromental Distance: > or= 3.5 Finger Breadths Mallampati Class: II Neck normal visual inspection Respiratory normal respiratory effort Auscultation: lungs clear to auscultation bilaterally Cardiovascular Rate/Rhythm: regular rate and regular rhythm Psychiatric Orientation: alert Testing Laboratory Results 04/26/20 09:27 04/26/20 08:41 PT 10.3 Seconds (9.0-12.0) 04/25/20 18:56 INR 1.0 (0.9-1.1) 04/25/20 18:56 APTT 45.9 Seconds (21.0-31.0) H* 04/26/20 08:41 Hemoglobin A1c 8.7 % (4.5-5.6) H 04/26/20 09:27 Blood Type A Positive 04/25/20 18:56 Antibody Screen NEGATIVE 04/25/20 18:56 04/26/20 04/26/20 04/26/20 09:52 07:51 04:19 POC Glucose 163 H 146 H 108 H 04/25/20 23:49 POC Glucose 153 H
[2020-04-26] MEDS ORDERED: VISIPAQUE IV PRN (11:51)
--- NOTE | 2020-04-26 12:16 | Procedure Note ---
Angiogram Post Procedure Fluoroscopy Time (minutes): 0.6 Radiation (mGy): 22 Contrast: 32 Post Operative Report Pre & Post Diagnosis Operation Date: 04/26/20 07:45 Pre-Op Diagnosis: ISCHEMIC LEFT LEG Post-Op Diagnosis: ISCHEMIC LEFT LEG I identified the patient and participated in the time-out.: Yes Procedure Operation Date: 04/26/20 07:45 Actual Procedures p Embolectomy Left Lower Extremity, Left Lower Extremity Arteriogram, Stenting of Left Superficial Femoral Artery (Left) - Regis Hidalgo MD Surgeon Regis Hidalgo MD Manager Cardiology None Estimated Blood Loss 150 Findings Consistent with Post-Op Diagnosis Specimens None Anesthesia Type General Complications none Disposition Accompanied Patient To Recovery: No Disposition: Recovery Room Indications This is a 60-year-old male who developed acute numbness and pain in his left lower extremity. He was seen in the emergency room at that time. He later went home. The numbness worsened. He was seen by his family physician and referred to us for evaluation. His noninvasives suggested occlusion of the proximal popliteal left lower extremity with extremely poor flow to the foot. Surgical intervention was recommended both open and endovascular approach. This is for limb salvage. I have discussed the risks options and benefits of the procedure with the patient. The patient understands the risks options and benefits and agrees to the procedure. Description of Procedure The patient was intubated in the preop area in the negative pressure room due to his Covid and transported to the angiogram suite. At that point the left leg was prepped and draped in a sterile manner. The patient was identified and a timeout was performed. Longitudinal incision made in the left groin. This carried down to where the common femoral superficial and profundofemoral arteries identified. There is mild plaque present in the common femoral artery along the lateral wall. Good pulse was felt in the common femoral artery and proximal superficial femoral artery. Patient was given a bolus of heparin at that time. The superficial femoral artery just beyond its origin was punctured and a 5 [place] sheath inserted. Arteriography done of the left lower extremity showed occlusion at the adductor hiatus extending to the proximal popliteal for proximal length of 10 cm. There is three-vessel runoff down to the ankle. That point the common femoral superficial femoral profundofemoral arteries clamped. The transverse arteriotomy was performed through the puncture site. Using #4 Poncho a large clot was removed from the left lower extremity distally. Good backbleeding was then seen. An 8 [place] sheath was inserted another injection was done down the leg. This showed a flap at the area of the clot. It was decided to place a stent across this area. A 7 x 5 Viabahn was then inserted over an 018 wire and deployed across the area of flap. Completion angio that point showed excellent flow through that area with no residual narrowing. There was good runoff through the anterior tibial artery to the foot posterior tibial cannot be seen below the ankle. That point the sheath was pulled back deformity was allowed to occur. The arteriotomy was closed with interrupted 6-0 Prolene's. Excellent Doppler signals were heard in the profunda and superficial femoral artery and the common femoral artery after the closure. There is an excellent dorsalis pedis signal heard in the top of the foot. The toes had good capillary refill and berkley nicely at that point. Adequate stasis was noted of the wound. The wound was then closed in usual fashion using running 2-0 Vicryl suture for the femoral sheath and a running 3-0 Vicryl suture for the subtendinous layer. Myrtle were used for the skin closure. The patient left the operation room in satisfactory condition and tolerated the procedure well. All needle and sponge counts were correct at the end of the procedure. I attest to the content of the Intraoperative Record and any orders documented therein. Any exceptions are noted below.
--- NOTE | 2020-04-26 13:29 | Anesthesiology Progress Note ---
Date of Service April 26, 2020 Anesthesia Post Procedure Vital Signs Vital Signs: Temp Pulse Pulse Pulse Resp BP BP 04/26/20 13:10 36.5 C 85 20 161/94 H 04/26/20 13:00 79 16 129/90 04/26/20 12:50 83 16 138/103 H 04/26/20 12:40 85 18 127/89 04/26/20 12:30 83 16 120/88 04/26/20 12:20 83 16 104/56 L 04/26/20 12:12 103 H 20 157/106 H 04/26/20 12:04 98 H 18 130/76 04/26/20 09:57 36.9 C 92 H 20 145/96 H 04/26/20 08:00 36.6 C 106 H 20 153/111 H 04/26/20 07:00 92 H 04/26/20 04:02 36.9 C 77 20 142/89 H 04/26/20 03:00 96 H 04/26/20 00:08 36.7 C 89 18 146/73 H 04/25/20 22:30 90 22 144/74 H 04/25/20 22:00 104 H 17 134/80 04/25/20 21:30 99 H 18 157/91 H 04/25/20 21:00 103 H 19 134/91 04/25/20 20:30 92 H 18 141/90 H 04/25/20 20:00 122 H 15 135/93 04/25/20 19:08 96 H 21 141/75 H 04/25/20 18:41 103 H 20 04/25/20 17:40 36.6 C 101 H 18 121/77 Pulse Ox 04/26/20 13:10 93 04/26/20 13:00 93 04/26/20 12:50 94 04/26/20 12:40 95 04/26/20 12:30 97 04/26/20 12:20 96 04/26/20 12:12 100 04/26/20 12:04 100 04/26/20 09:57 94 04/26/20 08:00 95 04/26/20 07:00 04/26/20 04:02 93 04/26/20 03:00 04/26/20 00:08 95 04/25/20 22:30 94 11/24/20 22:00 95 04/25/20 21:30 92 04/25/20 21:00 93 04/25/20 20:30 94 04/25/20 20:00 96 04/25/20 19:08 93 04/25/20 18:41 94 04/25/20 17:40 94 Pain Intensity Left Groin: Pain Intensity: 6 Transfer of Care Handoff Completed per policy Notes Mental Status: alert / awake / arousable Patient Amnestic to Procedure: Yes Nausea / Vomiting: adequately controlled Pain: adequately controlled Airway Patency, RR, SpO2: stable & adequate BP & HR: stable & adequate Hydration State: stable & adequate Anesthetic Complications: no major complications apparent
[2020-04-26] MEDS ORDERED: MoRPHine SULFATE 4 MG/ML 1 ML CARP\\VIAL IV PRN (14:16)
--- NOTE | 2020-04-26 14:29 | Pharmacy Report ---
Pharmacy Glycemic Short Note 2 - Date of Service April 26, 2020 - Glycemic Short BSG Results (Last 24 hours): 04/25/20 04/25/20 04/26/20 18:56 23:49 04:19 Glucose 269 H POC Glucose 153 H 108 H 04/26/20 04/26/20 04/26/20 07:51 08:41 09:52 Glucose 149 H POC Glucose 146 H 163 H 04/26/20 04/26/20 12:41 14:07 Glucose POC Glucose 158 H 176 H OUTPATIENT ANTIDIABETIC REGIMEN: * NPH 20-40 units SQ BID * Regular insulin 10-30 units SQ TID * 70-170 units of insulin per day * HbA1c: 8.7% (04/26/20) ASSESSMENT: * Mr Bush is a 60yo diabetic male POD 0 s/p embolectomy. * Patient refused a dose of Lantus last evening, so has been without basal insulin for 24 hours or more. * Post-op BSG 158, 176. NPH ordered post-op this afternoon, with a second dose ordered for this evening. * Novolog parameters tightened to more closely resemble his home insulin dosing. * Will monitor and adjust as required. PLAN FOR INPATIENT GLYCEMIC CONTROL: * Basal insulin * NPH 20 units SQ BID * Bolus insulin * NovoLog per scale ACHS or Q6hrs while NPO, with additional check at 0200 tonight * Goal Range: Low 110 mg/dL - High 140 mg/dL * Correction Factor: 12 mg/dL/unit * Nutritional / Prandial insulin per carb ratio of 1 unit per 4 grams CHO consumed PLAN FOR DISCHARGE: * Mr Bush's A1c (8.7%) indicates sub-optimal glycemic control as an outpt. Goal A1c: <7% * Anticipate that pt will require adjustments to his outpt regimen. More to follow as admission progresses.
[2020-04-26] MEDS: SODIUM CHLORIDE 0.9% 1000ML 1,000 ML IV SCH ×2 (14:44→21:10)
[2020-04-26 15:39] LABS: Basophils # (auto) 0.03 K/uL (0-0.2); Basophils % (auto) 0.4 %; Eosinophils # (auto) 0.12 K/uL (0-0.5); Eosinophils % (auto) 1.5 %; Hematocrit (blood only) 40.8 % (42-52); Hemoglobin 13.9 g/dL (14.0-18.0); Immature Granulocytes # (auto) 0.05 K/uL (0.00-0.02); Immature Granulocytes % (auto) 0.6 %; Lymphocytes # (auto) 1.46 K/uL (1.2-3.4); Lymphocytes % (auto) 18.4 %; Mean Corpuscular Hemoglobin 28.3 pg (25-34); Mean Corpuscular Volume 83.1 fL (80-100); Mean Platelet Volume 10.4 fL (7.4-10.4); Monocytes # (auto) 1.16 K/uL (0.11-0.59); Monocytes % (auto) 14.6 %; Neutrophils # (auto) 5.13 K/uL (1.4-6.5); Neutrophils % (auto) 64.5 %; Platelet Count 209 K/uL (130-400); RDW Coefficient of Variation 13.6 % (11.5-14.5); RDW Standard Deviation 40.9 fL (36.4-46.3); Red Blood Count 4.91 M/uL (4.7-6.1); White Blood Count 7.95 K/uL (4.8-10.8)
[2020-04-26 15:40] LABS: Mean Corpuscular Hgb Conc 34.1 g/dL (32-36)
[2020-04-26] MEDS ORDERED: WARFARIN SOD 10 MG TAB PO SCH (16:00)
[2020-04-26] MEDS: oxyCODONE/ACETAMINOPHEN 5mg/325mg TAB PO PRN ×2 (16:33→21:06)
[2020-04-26] MEDS: INSULIN HUMAN NPH SC SCH ×2 (16:34→21:04)
[2020-04-26 16:36] LABS: Partial Thromboplastin Ratio 1.5; Partial Thromboplastin Time 41.4 Seconds (21.0-31.0)
--- NOTE | 2020-04-26 16:43 | Hospitalist Progress Note ---
Date of Service April 26, 2020 Assessment & Plan (1) Atherosclerotic peripheral vascular disease with intermittent claudication: Suspected acute thrombus given acuity of symptoms, atrial fibrillation and hypercoagulable state. IV heparin s/p L femoral bypass with Dr. Hidalgo on 04/26 (2) Numbness of left foot: Secondary to arterial occlusion. (3) Foot drop, left: Suspect due to ischemia of peroneal nerve causing his foot drop. Dutch need PT following revascularization. (4) Diabetes mellitus type 2, uncontrolled: HbA1C pending Consult pharmacy for glycemic control (5) Benign essential hypertension: Continue metoprolol tartrate and diltiazem Will hold lisinopril to allow slightly higher blood pressure to aid perfusion at the present time. (6) Atrial fibrillation: Continue rate control with diltiazem and metoprolol IV heparin for anticoagulation (7) COVID-19: Recent COVID-19 infection with + testing on 04/07 Pt was tx as inpt at [facility] [place] CXR noted for b/l viral PNA COVID neg on admission 04/25 (8) DVT (deep venous thrombosis): dx on 04/18 while on warfarin Per notes, decision made by Dr. Suresh to change to lovenox x2 weeks, then back to warfarin Currently on heparin as above Admission and Anticipated Discharge Date Admission Date: April 25, 2020 Subjective Pt is doing ok post op. No major foot pain yet, but just came back from OR. Awaiting PO. Pt denies fever, SOB, chest pain, abd pain, n/v/c/d, LE swelling. Review of Systems Review of Systems: Pertinent positives and negatives reviewed in HPI--all others negative Physical Exam Constitutional: WD/WN, vitals as above Eyes: normal visual nickerson by confrontation and + anicteric sclerae Neck: normal visual inspection and trachea midline Respiratory: normal respiratory effort, lungs clear to auscultation Cardiovascular: Rate/Rhythm: regular rate; + abnormal rhythm Extremities: + edema (trace) Gastrointestinal (Abdomen): Inspection/Auscultation: abdomen not distended Percussion/Palpation: abdomen soft; abdomen nontender Musculoskeletal: Head/Neck/Chest: normocephalic and head atraumatic Skin: no rashes, warm and dry Neurologic: awake; not confused Speech / Cognition: normal speech Psychiatric: A+Ox3, euthymic affect Results & Data Results & Data ([facility]) Vital Signs (Past 12 Hours) Vital Signs Temp Pulse Pulse Pulse Resp BP Pulse Ox 04/26/20 15:00 36.1 C L 91 H 20 121/67 92 04/26/20 14:44 36.5 C 90 18 129/89 96 04/26/20 14:15 36.5 C 86 18 161/93 H 95 04/26/20 14:00 36.2 C L 94 H 16 127/78 04/26/20 13:30 90 20 132/89 93 04/26/20 13:20 86 18 148/90 H 94 04/26/20 13:10 36.5 C 85 20 161/94 H 93 04/26/20 13:00 79 16 129/90 93 04/26/20 12:50 83 16 138/103 H 94 04/26/20 12:40 85 18 127/89 95 04/26/20 12:30 83 16 120/88 97 04/26/20 12:20 36.4 C L 83 16 104/56 L 96 04/26/20 09:57 36.9 C 92 H 20 145/96 H 94 04/26/20 08:00 36.6 C 106 H 20 153/111 H 95 04/26/20 07:00 92 H PG Care Time/CCT Total # of Minutes Spent Total Time Spent with Patient: Total time spent is greater than 50% in coordination of care (as documented) at patient's floor/unit and/or counseling patient: Coding Level of Care Code 58243 Subseq Hosp Care Lvl 3 Diagnoses Atherosclerotic peripheral vascular disease with intermittent claudication I70.219 Numbness of left foot R20.8 Foot drop, left M21.372 Diabetes mellitus type 2, uncontrolled E11.65 Benign essential hypertension I10 Atrial fibrillation I48.91 COVID-19 U07.1 DVT (deep venous thrombosis) I82.409
[2020-04-26] MEDS: ceFAZolin 2000MG 2,000 MG/15 ML SYR IV SCH (17:48)
--- NOTE | 2020-04-26 21:07 | Electrocardiogram Report ---
Test Reason : Blood Pressure : / mmHG Vent. Rate : 094 BPM Atrial Rate : 098 BPM P-R Int : 000 ms QRS Dur : 090 ms QT Int : 326 ms P-R-T Axes : 000 -26 023 degrees QTc Int : 407 ms Atrial fibrillation Possible Inferior infarct , age undetermined Abnormal ECG When compared with ECG of 22-APR-2020 23:02, Inferior infarct is now Present Confirmed by Sedrick Roberts ([id number]) on 04/26/2020 9:07:32 PM Referred By: Regis Hidalgo Confirmed By:Sedrick Roberts
[2020-04-26 23:28] LABS: Partial Thromboplastin Ratio 1.6
[2020-04-26 23:43] LABS: Partial Thromboplastin Time 45.4 Seconds (21.0-31.0)
[2020-04-27] MEDS ORDERED: INSULIN ASPART 100 UNITS/ML 3 ML PEN SC SCH (02:00)
[2020-04-27] MEDS: ceFAZolin 2000MG 2,000 MG/15 ML SYR IV SCH (02:21)
[2020-04-27] MEDS: SODIUM CHLORIDE 0.9% 1000ML 1,000 ML IV SCH (05:13)
[2020-04-27 06:47] LABS: Basophils # (auto) 0.02 K/uL (0-0.2); Basophils % (auto) 0.3 %; Eosinophils # (auto) 0.17 K/uL (0-0.5); Eosinophils % (auto) 2.5 %; Hematocrit (blood only) 37.3 % (42-52); Hemoglobin 12.3 g/dL (14.0-18.0); Immature Granulocytes # (auto) 0.03 K/uL (0.00-0.02); Immature Granulocytes % (auto) 0.4 %; Lymphocytes # (auto) 1.11 K/uL (1.2-3.4); Lymphocytes % (auto) 16.1 %; Mean Corpuscular Hemoglobin 28.5 pg (25-34); Mean Corpuscular Volume 86.3 fL (80-100); Mean Platelet Volume 10.5 fL (7.4-10.4); Monocytes # (auto) 0.96 K/uL (0.11-0.59); Monocytes % (auto) 13.9 %; Neutrophils % (auto) 66.8 %; Platelet Count 235 K/uL (130-400); RDW Coefficient of Variation 13.8 % (11.5-14.5); RDW Standard Deviation 43.7 fL (36.4-46.3); Red Blood Count 4.32 M/uL (4.7-6.1); White Blood Count 6.89 K/uL (4.8-10.8)
[2020-04-27 07:10] LABS: BUN Creatinine Ratio 14.8 (10-20); Creatinine Clr Calc Pharmacy 96.8 ml/min; Est GFR (African American) 81.7; Est GFR (Non-African American) 70.5; Partial Thromboplastin Ratio 1.8; Potassium 4.7 mmol/L (3.5-5.1); Prothrombin Time 10.4 Seconds (9.0-12.0)
[2020-04-27 07:11] LABS: Partial Thromboplastin Time 48.9 Seconds (21.0-31.0)
[2020-04-27] MEDS: METOPROLOL TARTRATE 100 MG TAB PO SCH (08:10)
[2020-04-27] MEDS: ASPIRIN 81 MG ECTAB PO SCH (08:10)
[2020-04-27] MEDS: dilTIAZem HCL 240 MG CAPCR PO SCH (08:10)
[2020-04-27] MEDS: INSULIN HUMAN NPH SC SCH (08:13)
[2020-04-27] MEDS: INSULIN ASPART 100 UNITS/ML 3 ML PEN SC SCH ×2 (08:13→12:44)
--- NOTE | 2020-04-27 09:28 | Surgery Progress Note ---
Date of Service April 27, 2020 Assessment & Plan (1) History of embolectomy: Patient is post op day #1 from embolectomy of his left leg. Most likely embolism from his heart secondary to a fib. He does have mild neuropathy and foot weakness on dorsiflexion secondary to ischemic time of the foot. This may improve over time with physical therapy and activity. From a vascular standpoint he can be discharged on his coumadin and lovenox bridge. We will see him in the office for staple removal in 10days. Thank you very much for letting us participate in the care of this patient. Admission and Anticipated Discharge Date Admission Date: April 25, 2020 Subjective Patient denies any pain in his left foot. Does have a pins and needles feeling in his foot and weakness on dorsiflexion. Physical Exam Cardiovascular: Rate/Rhythm: + irregularly irregular Vessels: femoral pulses present and dorsalis pedis pulses present (now palpable on left, excellent doppler signal) Extremities: normal capillary refill Skin: + incision (dry and clean, no hematoma present) Results & Data ([facility]) Vital Signs (Past 12 Hours) Vital Signs Temp Pulse Pulse Pulse Resp BP Pulse Ox 04/27/20 08:05 106 H 16 167/87 H 95 04/27/20 07:18 82 04/27/20 05:51 36.5 C 77 18 132/81 94 04/27/20 00:27 105 H
[2020-04-27] MEDS: HEPARIN SODIUM/DEXTROSE 25,000 UNITS/500 ML BAG IV SCH (10:13)
--- NOTE | 2020-04-27 10:50 | Discharge Summary ---
Date of Service April 27, 2020 Admission HPI Per Admitting Provider Luis E Bush is a 60 year old male with T2DM, atrial fibrillation, recent diagnosis of DVT, COVID-19 who presents to the ER with Left foot pain with concern for ischemia by his PCP on recent US arterial doppler imaging performed on ER visit 3 days ago. His PCP called Dr Hidalgo from vascular surgery who on review of his imaging recommended admission. He has a recent history of COVID-19 that was diagnosed on April 07. He was admitted to [facility] for a week with respiratory symptoms and diagnosed with pneumonia discharged with IV antibiotics through a midline in his right arm. He subsequently came to the ER here on April 18 due to pain and swelling in his right arm and right thigh. Subsequent US venous dopplers showed long segment occlusive superficial venous thrombus of the basilic and sup erficial venous thrombus of the greater saphenous veins (extends into junction with the common femoral vein). The patient was therapeutic with warfarin at the time therefore his case was discussed with Dr Suresh and recommended switching from warfarin to lovenox for 2 weeks then switching back to warfarin. His midline was removed, however 4 days later he returned to the ER with concern for left leg pain. US arterial doppler was performed at that time which was concerning for an occlusion of the left mid left superficial femoral artery with low velocity monophasic reconstitution. However his symptoms were felt to be more neurological and main symptom of a foot drop rather than ischemia. His case was discussed with the vascular steam box tender at the time but given his symptoms of foot drop and not a cold foot it was suspected to be more chronic. On follow up with his PCP today his symptoms appear to be more ischemic. He reports after discharge from the ER his left leg has continued to have intermittent left leg pain getting progressively worse, worse on exertion from left hamstring but especially in his left calf. He notes movement of his left foot has become worse since he was seen in the ER especially with dorsiflexion. Left foot is cool to touch. In the ER he had a rapid COVID-19 test which was negative. Despite CXR findings he is > 14 days out from his original positive test and had symptoms for approximately 10 days prior to this. Principal Diagnosis Pt feels he is doing well post-op. He still has some L foot drop, but his pain is resolved. He does have a "numby" feeling, but this is improving since yesterday. Tolerating PO without issue. Pt denies fever, SOB, chest pain, abd pain, n/v/c/d, LE pain or swelling. Discharge Exam Constitutional WD/WN, vitals as above Eyes normal visual nickerson by confrontation and + anicteric sclerae Neck normal visual inspection and trachea midline Respiratory normal respiratory effort, lungs clear to auscultation Cardiovascular Rate/Rhythm: regular rate; + abnormal rhythm Vessels: normal peripheral pulses Extremities: + edema (trace) Gastrointestinal (Abdomen) Inspection/Auscultation: abdomen not distended Percussion/Palpation: abdomen soft; abdomen nontender Musculoskeletal Head/Neck/Chest: normocephalic and head atraumatic Skin no rashes, warm and dry Neurologic awake; not confused Speech / Cognition: normal speech Psychiatric A+Ox3, euthymic affect Discharge Data Allergies Allergy/AdvReac Type Severity Reaction Status Date / Time pravastatin AdvReac Unknown Muscle Verified 04/22/20 23:30 Tightness simvastatin AdvReac Unknown Muscle Verified 04/22/20 23:30 Tightness Consultations 04/25/20 18:13 ED Decision to Admit Stat 04/26/20 06:37 Consult Vascular Surgery Routine Procedures Performed Operation Date: 04/26/20 07:45 Actual Procedures p Embolectomy Left Lower Extremity, Left Lower Extremity Arteriogram, Stenting of Left Superficial Femoral Artery (Left) - Regis Hidalgo MD Ordered Studies 04/26/20 08:26 EV angio LE LT Routine 04/26/20 08:28 US EV guide vascular access Routine Hospital Course (1) Atherosclerotic peripheral vascular disease with intermittent claudication: Suspected acute thrombus given acuity of symptoms, atrial fibrillation and hypercoagulable state. IV heparin during admission s/p L femoral bypass with Dr. Hidalgo on 04/26 Dopplers WNL per surgeon Pt to f/u with Dr. Hidalgo in 10 days for staple removal (2) Numbness of left foot: Secondary to arterial occlusion. (3) Foot drop, left: Suspect due to ischemia of peroneal nerve causing his foot drop. Dutch need PT, CM to arrange Script given for AFO (4) Diabetes mellitus type 2, uncontrolled: HbA1C 8.7 (5) Benign essential hypertension: Continue metoprolol tartrate and diltiazem Will hold lisinopril to allow slightly higher blood pressure to aid perfusion at the present time. (6) Atrial fibrillation: Continue rate control with diltiazem and metoprolol as above (7) COVID-19: Recent COVID-19 infection with + testing on 04/07 Pt was tx as [facility] CXR noted for b/l viral PNA O2 sats WNL on RA, asx from this COVID neg on admission 04/25 (8) DVT (deep venous thrombosis): dx on 04/18 while on warfarin Per notes, decision made by Dr. Suresh to change to lovenox x2 weeks, then back to warfarin CM to arrange outpt cardiology and coag clinic f/u Total Time Total Time Spent Total Time Spent (In Minutes): >30 Total Time Includes: Examination of the Patient, Discharge Planning, Medication Reconciliation, Communication With Other Providers and Other Discharge Plan Discharge Items Patient Disposition: Home - Self-Care Reason For Visit: ISCHEMIC LEFT FOOT Discharge Diagnosis: Ischemic left foot Activity: Per Instructions section Lifting: Gradually increase as tolerated Bathing Comment: May shower starting friday Non-emergency contact: Primary Care Provider and Surgeon Call non-emergency contact if: your pain is not controlled, your pain is worsening, you have a fever, your temperature is above 101, your wound has increased redness, your wound has increased drainage and your wound pain has increased Follow-up/Referrals: Nadir Lowry MD [Primary Care Provider] - Regis Hidalgo MD [Physician] - (Call the office to schedule an appointment for follow up. [phone]) Diet: Carb Consistent or DM2 Addtl Attending Provider Instructions: You should be seen by cardiology. Case Management will call you tomorrow with an appt. If you do not hear from them by afternoon, you should call the hospital and ask to speak with their department--[phone] You should also be seen by Dr. Suresh to follow up with your blood thinner plan. Case Management will also set this appt up for you tomorrow. You should also start with physical therapy. Case Management will help you set this up as well. You should see Dr. Hidalgo in 10 days for staple removal. You can get a brace from [employer] [facility] or any other home care store. Addtl Crystal Evaluator Provider Instructions: ACTIVITY RECOMMENDATIONS: See Above SPECIAL CARE INSTRUCTIONS: Call your doctor if: * Temperature above 101 degrees * Pain not relieved by pain medicine ordered * There is increased drainage or redness from any incision * You have any unanswered questions or concerns. call [phone] for a follow up appointment Pending Studies at Discharge: No Stand-Alone Forms: My [facility], Smoking Cessation Medications and DC Order Prescriptions: Continued tramadol 50 mg tablet 50 mg PO TID PRN (Reason: severe pain) Qty: 15 RF: 0 diltiazem HCl [DILT-XR] 240 mg capsule,ext.rel 24h degradable 240 mg PO QAM Qty: 30 RF: 5 Humulin N NPH Insulin KwikPen 100 unit/mL (3 mL) insulin pen 20 - 40 unit SUBCUT BID Qty: 15 RF: 5 Novolin R Regular U-100 Insuln 100 unit/mL solution 10 - 30 unit subcut TID Qty: 10 RF: 5 lisinopril 20 mg tablet 20 mg PO BID Qty: 30 RF: 5 metoprolol tartrate 100 mg tablet 100 mg PO BID Qty: 60 RF: 5 aspirin [Aspirin Low Dose] 81 mg Tablet,Delayed Release (Dr/Ec) 81 mg PO DAILY RF: 0 enoxaparin [Lovenox] 120 mg/0.8 mL syringe 120 mg subcut Q12H 14 Days Qty: 22.4 RF: 0 Discontinued warfarin 5 mg tablet 0 mg PO .UD RF: 0 Discharge Orders: Discharge Order (Routine); Ordered 04/27/20 Ordered By: Bella Fall Admission Data Admit Date/Time: 04/25/20 21:24 Attending Provider: Bella Fall Admit Provider: Ab Lozano Primary Care Provider: Nadir Lowry Other Providers: Ab Lozano ; Regis Hidalgo Other Interventions: Discharge Summary Assessment (RN) Last Done: 04/27/20 12:32 Coding Level of Care Code D/C Day Management >30 mins Diagnoses Atherosclerotic peripheral vascular disease with intermittent claudication I70.219 Numbness of left foot R20.8 Foot drop, left M21.372 Diabetes mellitus type 2, uncontrolled E11.65 Benign essential hypertension I10 Atrial fibrillation I48.91 COVID-19 U07.1 DVT (deep venous thrombosis) I82.409
[2020-04-27] MEDS ORDERED: WARFARIN SOD 7.5 MG TAB PO SCH (16:00)
== END 2020-04-27 14:17 | disposition home or self-care (01) | DRG 254 ==
LOC: ED 17:38 → SUATTDRO 21:24 → 2W 21:24

== ENCOUNTER 2020-12-23 17:49 | Inpatient (IN) ==
[2020-12-23] MEDS ORDERED: ASPIRIN CHEW 324 MG PO STA (18:07)
--- NOTE | 2020-12-23 18:23 | Emergency Department Note ---
History of Present Illness General Chief Complaint: Cardiac Assessment Stated Complaint: Irregular heartbeat Time Seen by Provider: 12/23/20 17:58 History of Present Illness Provider Complaint: chest pain Onset (ago): day(s) 1 Duration: progressively worsening Onset: during rest Pain Location: substernal Pain Radiation: none Quality: + tightness Relieved By: + nothing Exacerbated By: + nothing Context: + new medications (Patient states he has been taking natural medications clove and garlic); no recent illness, no recent surgery, no recent immobilization, no recent travel, no trauma/injury or no history of DVT/PE Associated symptoms: + nausea, + dyspnea and + palpitations; no vomiting, no diaphoresis, no syncope, no fever, no cough or no leg swelling Home Medications Medication Instructions Recorded Confirmed Type aspirin 81 mg tablet,delayed 81 mg PO QPM 04/18/20 12/23/20 History release (Aspirin Low Dose) insulin NPH isoph U-100 human 100 20 - 40 unit SUBCUT BID #15 ml 04/21/20 12/23/20 Rx unit/mL (3 mL) subcutaneous pen (Humulin N NPH U-[address] [facility]) insulin regular human 100 unit/mL 10 - 30 unit SUBCUT TID #10 ml 04/21/20 12/23/20 Rx injection solution (Novolin R Regular U-100 Insulin) lisinopril 20 mg tablet 20 mg PO BID #30 tab 04/21/20 12/23/20 Rx metoprolol tartrate 100 mg tablet 150 mg PO BID #90 tab 08/25/20 12/23/20 Rx rivaroxaban 20 mg tablet (Xarelto) 20 mg PO QPM #30 tab 08/28/20 12/23/20 Rx furosemide 20 mg tablet (Lasix) 20 mg PO DAILY PRN #30 tab 10/03/20 12/23/20 Rx diltiazem HCl 240 mg 240 mg PO QAM 11/30/20 12/23/20 History capsule,extended release 24 hr benfotiamine 150 mg capsule 300 mg PO BID 12/23/20 12/23/20 History thiamine HCl (vitamin B1) 500 mg 500 mg PO DAILY 12/23/20 12/23/20 History tablet Allergies Allergy/AdvReac Type Severity Reaction Status Date / Time pravastatin AdvReac Mild Muscle Verified 12/23/20 18:37 Tightness simvastatin AdvReac Mild Muscle Verified 12/23/20 18:37 Tightness Past Med/Surg History Medical History Anticoagulant long-term use Anxiety Atrial fibrillation Dx >5 years ago - on xarelto - pcp manages a.fib Benign essential hypertension CAD (coronary artery disease) Depression DM type 2 (diabetes mellitus, type 2) IDDM Dyslipidemia Dyspnea on exertion GERD (gastroesophageal reflux disease) diet controlled History of 2019 novel coronavirus disease (COVID-19) hospitalized 04/2020 [facility] -- thought it was heart problems and oxygen level had dropped so he went to ER. History of blood clots superficial RLE within last month believes r/t recent Covid dx History of DVT (deep vein thrombosis) LLE - 3 weeks ago - dx at [facility] (believes r/t covid) s/p embolectomy with Dr. Hidalgo at [facility] (hard of hearing) Myocardial infarct "in my mid 40s" Sciatica TMJ click never locked Surgical History History of cardiac catheterization >10 years ago - MD - [place] in [place] - 1 stent History of embolectomy 04/27/2020 [facility] with stenting of Left Superficial Femoral Artery History of heart artery stent x 1 History of hernia repair Rt inguinal History of non-cataract eye surgery Rt eye x 2 History of placement of ear tubes History of skin graft as a child History of tonsillectomy Family History Father Diabetes Cardiovascular disease Hypertension Bladder cancer Sister Cardiovascular disease Grandmother Diabetes Hypertension Other No family history of adverse response to anesthesia Social History Smoking Status: Former smoker Age Started Using Tobacco: 18; Age Quit Using Tobacco: 46; Second Hand Exposure: No; Hx Alcohol Use: No Hx Substance Use: No Preferred Language: Hungarian Communication Ability: Effective Credit Manager Required: No Beliefs That Will Affect Care: None marital status: Current Living Situation: Alone Feels Safe at Home: Yes Childhood Exposure to Second-Hand Smoke: Yes Seatbelt Use: sometimes Sunscreen Use: No Assistive Devices: Glasses Review of Systems A total of 10 systems reviewed and were otherwise negative Physical Exam Vital Signs Vital Signs - 24 hr 12/23/20 17:51 12/23/20 18:06 12/23/20 18:10 Temperature 36.3 C L Temperature Source Temporal Artery Scan Pulse Rate 48 L 43 L 39 L Pulse Rate [Apical] Pulse Rhythm [Apical] Respiratory Rate 18 17 16 Blood Pressure 148/83 H Blood Pressure [Right Arm] Blood Pressure Mean 104 Blood Pressure Mean [Right Arm] Blood Pressure Position [Right Arm] Pulse Oximetry 95 Oxygen Delivery Method Room Air Sepsis Recent Fever Within 48 Hours No Sepsis New/Unexplained Change in Mental Status N/A Sepsis Action Taken by Nursing No Action Required 12/23/20 18:20 12/23/20 18:30 12/23/20 18:48 Temperature Temperature Source Pulse Rate 48 L 53 L Pulse Rate [Apical] Pulse Rhythm [Apical] Respiratory Rate 17 25 H Blood Pressure Blood Pressure [Right Arm] Blood Pressure Mean Blood Pressure Mean [Right Arm] Blood Pressure Position [Right Arm] Pulse Oximetry 95 Oxygen Delivery Method Room Air Sepsis Recent Fever Within 48 Hours Sepsis New/Unexplained Change in Mental Status Sepsis Action Taken by Nursing 12/23/20 19:17 12/23/20 19:25 Temperature Temperature Source Pulse Rate Pulse Rate [Apical] 84 Pulse Rhythm [Apical] Irregular Respiratory Rate 18 Blood Pressure Blood Pressure [Right Arm] 161/95 H Blood Pressure Mean Blood Pressure Mean [Right Arm] 117 Blood Pressure Position [Right Arm] Sitting Pulse Oximetry 97 95 Oxygen Delivery Method Room Air Room Air Sepsis Recent Fever Within 48 Hours Sepsis New/Unexplained Change in Mental Status Sepsis Action Taken by Nursing Physical Exam GENERAL: He is oriented to person, place, and time. He appears well-developed and well-nourished. He does not appear distressed. HENT: Exam performed. - Head: Normocephalic and atraumatic. - Right Ear: External ear normal. No mastoid tenderness. - Left Ear: External ear normal. No mastoid tenderness. - Mouth/Throat: The oropharynx is clear and moist. No trismus in the jaw. No dental abscesses or uvula swelling. No oropharyngeal exudate or tonsillar abscesses. EYES: Conjunctivae and EOM are normal. Pupils are equal, round, and reactive to light. Right eye exhibits no discharge. Left eye exhibits no discharge. No scleral icterus. NECK: Normal range of motion. Neck supple. No JVD present. No spinous process tenderness present. No carotid bruit present. No rigidity. No tracheal deviation and normal range of motion present. No Brudzinski's sign and no Kernig's sign noted. CV: bradycardic rate, irregular rhythm, normal heart sounds and intact distal pulses. There is no peripheral edema. Palpable radial pulses bue. PULM/CHEST: Effort normal and breath sounds normal. No respiratory distress. No stridor. He has no wheezes. He has no rales. - Chest Wall: He exhibits no tenderness. ABD: The abdomen is soft. Bowel sounds are normal. He has no distension. No mass is present. There is no tenderness. There is no rebound, no guarding, no Turpin's sign and no tenderness at McBurney's point. Rovsig negative. MUSC/SKEL: Normal range of motion. There is no peripheral edema, tenderness or deformity. LYMPH: No cervical adenopathy. NEURO: He is alert and oriented to person, place, and time. He has normal strength. No cranial nerve deficit or sensory deficit. Coordination and gait normal. GCS eye subscore is 4. GCS verbal subscore is 5. GCS motor subscore is 6. Cerebellar tests wnl. SKIN: Skin is warm and dry. He is not diaphoretic. PSYCH: He has a normal mood and affect. Behavior is normal. Judgment and thought content normal. Course Course 1757: The patient was evaluated in room B12. A complete history and physical exam was performed Cardiac monitoring: An order was placed for continuous cardiac monitoring. The monitor shows a rate of 50 with atrial flutter rhythm 1946: Vital signs stable. Labs show potassium of 6.4. Creatinine of 2.28. Baseline is approximately 1.3. Patient will be treated with calcium gluconate 1 g 1 amp of D50 and 10 units of insulin. Patient will be admitted to the [facility] team for hyperkalemia and GENTRY. Dr. Ascencio team notified. Administered Medications Discontinued Medications Aspirin (Aspirin Chew 324 Mg) 324 mg PO NOW STA Stop: 12/23/20 18:08 Last Admin: 12/23/20 18:33 Dose: 324 mg Documented by: [id number] Medical Decision Making Laboratory Data Result diagrams: 12/23/20 18:29 12/23/20 18:29 Labs: Lab Results 12/23/20 12/23/20 12/23/20 Range/Units 18:29 18:29 18:29 WBC 10.24 (4.8-10.8) K/uL RBC 5.30 (4.7-6.1) M/uL Hgb 15.6 (14.0-18.0) g/dL Hct 45.3 (42-52) % MCV 85.5 (80-100) fL MCH 29.4 (25-34) pg MCHC 34.4 (32-36) g/dL RDW Std Deviation 41.4 (36.4-46.3) fL RDW Coeff of Scott 13.2 (11.5-14.5) % Plt Count 227 (130-400) K/uL MPV 10.8 H (7.4-10.4) fL Immature Gran % (Auto) 0.2 % Neut % (Auto) 62.3 % Lymph % (Auto) 25.3 % Haskell % (Auto) 10.1 % Eos % (Auto) 1.9 % Baso % (Auto) 0.2 % Neut # (Auto) 6.39 (1.4-6.5) K/uL Lymph # (Auto) 2.59 (1.2-3.4) K/uL Haskell # (Auto) 1.03 H (0.11-0.59) K/uL Eos # (Auto) 0.19 (0-0.5) K/uL Baso # (Auto) 0.02 (0-0.2) K/uL Immature Gran # (Auto) 0.02 (0.00-0.02) K/uL PT 10.3 (9.0-12.0) Seconds INR 1.0 (0.9-1.1) APTT 31.3 H (21.0-31.0) Seconds PTT Ratio 1.2 Sodium 134 L (136-145) mmol/L Potassium 6.4 H* (3.5-5.1) mmol/L Chloride 103 (98-107) mmol/L Carbon Dioxide 27 (21-32) mmol/L Anion Gap 4.0 (3-11) BUN 45 H (7-18) mg/dl Creatinine 2.28 H (0.6-1.4) mg/dl Est Cr Clr Drug Dosing 50.6 ml/min Est GFR ( Amer) 35.3 ml/min Est GFR (Non-Af Amer) 30.5 ml/min BUN/Creatinine Ratio 19.6 (10-20) Glucose 230 H (70-99) mg/dl Calcium 9.0 (8.5-10.1) mg/dl Magnesium 2.3 (1.8-2.4) mg/dl Troponin I < 0.015 (0-0.045) ng/ml Lipase 171 (73-393) U/L Imaging Data Chest x-ray: Radiologist's impression: Chest X-Ray 12/23/20 18:08 XR chest 2V PA/lateral CLINICAL HISTORY: Chest Pain COMPARISON STUDY: Chest radiograph April 25, 2020. FINDINGS: Lung volumes are normal. There is no pneumothorax or pleural effusion. There is no consolidation or evidence for pulmonary edema. Moderate cardiomegaly is noted. IMPRESSION: No acute cardiopulmonary findings. Moderate cardiomegaly. ACT 112: Negative or not required by law. Electronically signed by: Travis Dubose M.D. 12/23/2020 7:26 PM ECG Data Indication: chest pain, palpitations and SOB/dyspnea Rate (beats per minute): 53 Rhythm: atrial flutter Findings: no ST depression, no ST elevation or no prolonged QT MDM Narrative 1758: The patient was evaluated in room B12. A complete history and physical e xam was performed Cardiac monitoring: An order was placed for continuous cardiac monitoring. The monitor shows a rate of 50 with atrial flutter rhythm 194: Vital signs stable. Labs show potassium of 6.4. Creatinine of 2.28. Baseline is approximately 1.3. Patient will be treated with calcium gluconate 1 g 1 amp of D50 and 10 units of insulin. Patient will be admitted to the [facility] team for hyperkalemia and GENTRY. Dr. Ascencio team notified. Impression & Plan Acute hyperkalemia, GENTRY (acute kidney injury) Critical Care Time Critical Care Time: Yes Total Critical Care Time: 50 I have personally spent greater than 50 minutes of critical care time in the direct management of this patient. This includes bedside care, interpretation of diagnostic studies, and testing, discussion with consultants, patient, and family members, and other required patient management activities. This 50 minutes is in excess of all separately billable procedures. Discharge Plan Visit Data Chief Complaint: Cardiac Assessment Stated Complaint: Irregular heartbeat ED Provider: Saran Cutler Discharge Problem: Acute hyperkalemia, GENTRY (acute kidney injury) Patient Disposition: Admitted As Inpatient Forms Stand Alone Forms: My [facility] Prescriptions Prescriptions: No Action Humulin N NPH Insulin KwikPen 100 unit/mL (3 mL) insulin pen 20 - 40 unit SUBCUT BID Qty: 15 RF: 5 Novolin R Regular U-100 Insuln 100 unit/mL solution 10 - 30 unit subcut TID Qty: 10 RF: 5 lisinopril 20 mg tablet 20 mg PO BID Qty: 30 RF: 5 Xarelto 20 mg tablet 20 mg PO QPM Qty: 30 RF: 5 furosemide [Lasix] 20 mg tablet 20 mg PO DAILY PRN (Reason: edema) Qty: 30 RF: 2 metoprolol tartrate 100 mg tablet 150 mg PO BID Qty: 90 RF: 5 diltiazem HCl 240 mg capsule,extended release 24hr 240 mg PO QAM RF: 0 aspirin [Aspirin Low Dose] 81 mg Tablet,Delayed Release (Dr/Ec) 81 mg PO QPM RF: 0 thiamine HCl (vitamin B1) [Vitamin B-1] 500 mg Tablet 500 mg PO DAILY RF: 0 benfotiamine 150 mg Capsule 300 mg PO BID RF: 0 Referrals Referrals: Nadir Lowry MD [Primary Care Provider] -
[2020-12-23 18:39] LABS: Basophils # (auto) 0.02 K/uL (0-0.2); Basophils % (auto) 0.2 %; Eosinophils # (auto) 0.19 K/uL (0-0.5); Eosinophils % (auto) 1.9 %; Hematocrit (blood only) 45.3 % (42-52); Hemoglobin 15.6 g/dL (14.0-18.0); Immature Granulocytes # (auto) 0.02 K/uL (0.00-0.02); Immature Granulocytes % (auto) 0.2 %; Lymphocytes # (auto) 2.59 K/uL (1.2-3.4); Lymphocytes % (auto) 25.3 %; Mean Corpuscular Hemoglobin 29.4 pg (25-34); Mean Corpuscular Hgb Conc 34.4 g/dL (32-36); Mean Corpuscular Volume 85.5 fL (80-100); Mean Platelet Volume 10.8 fL (7.4-10.4); Monocytes # (auto) 1.03 K/uL (0.11-0.59); Monocytes % (auto) 10.1 %; Neutrophils # (auto) 6.39 K/uL (1.4-6.5); Neutrophils % (auto) 62.3 %; Platelet Count 227 K/uL (130-400); RDW Coefficient of Variation 13.2 % (11.5-14.5); RDW Standard Deviation 41.4 fL (36.4-46.3); White Blood Count 10.24 K/uL (4.8-10.8)
[2020-12-23 18:49] LABS: Partial Thromboplastin Ratio 1.2; Partial Thromboplastin Time 31.3 Seconds (21.0-31.0); Prothrombin Time 10.3 Seconds (9.0-12.0)
--- NOTE | 2020-12-23 19:28 | XRay Report ---
XR chest 2V PA/lateral CLINICAL HISTORY: Chest Pain COMPARISON STUDY: Chest radiograph April 25, 2020. FINDINGS: Lung volumes are normal. There is no pneumothorax or pleural effusion. There is no consolid ation or evidence for pulmonary edema. Moderate cardiomegaly is noted. IMPRESSION: No acute cardiopulmonary findings. Moderate cardiomegaly. ACT 112: Negative or not required by law. Electronically signed by: Travis Dubose M.D. 12/23/2020 7:26 PM
[2020-12-23 19:31] LABS: BUN Creatinine Ratio 19.6 (10-20); Blood Urea Nitrogen 45 mg/dl (7-18); Carbon Dioxide 27 mmol/L (21-32); Chloride 103 mmol/L (98-107); Creatinine Clr Calc Pharmacy 50.6 ml/min; Est GFR (African American) 35.3 ml/min; Est GFR (Non-African American) 30.5 ml/min; Glucose 230 mg/dl (70-99); Lipase 171 U/L (73-393); Magnesium 2.3 mg/dl (1.8-2.4); Potassium 6.4 mmol/L (3.5-5.1); Sodium 134 mmol/L (136-145); Troponin I < 0.015 ng/ml (0-0.045)
[2020-12-23] MEDS ORDERED: DEXTROSE 50% 50 ML SYRINGE IV STA (19:32)
[2020-12-23] MEDS ORDERED: INSULIN HUMAN REGULAR PER UNIT 10 UNITS in SYRINGE 9.9 ML IV STA (19:32)
[2020-12-23] MEDS ORDERED: CALCIUM GLUCONATE 10% 1,000 MG in SODIUM CHLORIDE 0.9% 50 ML IV STA (19:32)
[2020-12-23] MEDS ORDERED: NovoLIN-R INSULIN PER UNIT CHARGE ONE (19:54)
[2020-12-23] MEDS ORDERED: SODIUM CHLORIDE 0.9% 1000ML 1,000 ML IV SCH (20:00)
--- NOTE | 2020-12-23 21:27 | History & Physical Report ---
Date of Service December 23, 2020 Assessment & Plan (1) Acute hyperkalemia: Plan: K=6.4 in setting of GENTRY. No EKG changes, however, patient has been bradycardic - reported HR of 40's prior to arrival - ranging 39 - 85 on monitor. EKG with rate of 53. Possibly medication induced - mild BRASH syndrome picture? Patient is on Metoprolol as well as Diltiazem. ?Bradycardia triggering renal failure resulting in hyperkalemia. Uncertain if patient's recent use of supple ments is effecting his current state. HR has improved with IV hydration received in ER as well as insulin/D50 and Ca gluconate -Admit to medical with telemetry -Trend BMP -Will administer Patiromer x 1 dose now -Trend K and renal function (2) GENTRY (acute kidney injury): Plan: Elevated BUN and Cr of 45 and 2.2, respectively from prior values of 33 and 1.35. Etiology uncertain. Possibly secondary to medication effects, transient bradycardia. Patient on Lisinopril as well -Check UA, CK, microscopy and culture if indicated -Check urine Na and Urea -Check renal ultrasound -Monitor I/Os -Avoid nephrotoxic agents -Renal dosing where needed (3) Atrial fibrillation: Plan: Patient bradycardic on arrival -Hold Metoprolol -Hold Diltiazem -Continue Rivaroxaban - will decrease to 15mg daily for renal function (4) Diabetes mellitus type 2, uncontrolled: Plan: Chronic -Lantus 20u BID -ISS -Goal blood sugar 100 - 140 (5) DVT (deep venous thrombosis): Plan: In setting of Covid -Continue Rivaroxaban (6) Benign essential hypertension: Plan: Chronic. Blood pressure mildly elevated at present -Holding Metoprolol and Diltiazem as above for bradycardia -Hold Lisinopril -Continue to monitor (7) CAD (coronary artery disease): Plan: Chronic. S/p stent x 1 15 years ago. Patient does endorse some exertional chest tightness and dyspnea on occasion. He does not follow with Cardiology. No current CP. -Consider discharging with Nitro PRN -Should followup with PCP re: outpatient stress testing. Plan: F/E/N -NSS at 125mL/hr x 1 liter, monitor K, Low K/CC/AHA diet as tolerated Ppx - On Rivaroxaban for AF and h/o DVT Code - Full Dispo -Admit to medical with telemetry History of Present Illness Chief Complaint: weakness, fatigue Primary Care Provider: Nadir Lowry MD Luis E Bush is a 60yo male with history of HTN, HLP, DM, CAD s/p stent placement, AF presenting with 1 day of weakness, fatigue, SOB and near syncope. Checked his HR today and was found to be in the 40's Decreased UOP this evening with a weak, dark stream. He denies dysuria, hematuria, nausea, vomiting. Stools have been slightly loose. Has occasional LE edema but overall denies weight gain, orthopnea. Has occasional exertional chest tightness and DO. Has history of CAD s/p stent placement 15 years ago. He does not follow with Cardiology. Has not had a recent stress test. Patient has been taking herbal supplements at home for the last three weeks. He started Vitamin B1 and Benfotiamine to help with is LLE neuropathy. Patient had Covid-19 in April 2020 and developed VTE of LLE as well as arterial occlusion. Patient had femoral bypass performed by Dr. Hidalgo on 04/26. He has been experiencing neuropathic symptoms since. He has also been making a drink of lemon juice, olive oil, cayenne pepper, tumeric, garlic and apple and drinking it on most days of the week. Allergies Allergy/AdvReac Type Severity Reaction Status Date / Time pravastatin AdvReac Mild Muscle Verified 12/23/20 18:37 Tightness simvastatin AdvReac Mild Muscle Verified 12/23/20 18:37 Tightness Home Medications Medication Instructions Recorded Confirmed Type aspirin 81 mg tablet,delayed 81 mg PO QPM 04/18/20 12/23/20 History release (Aspirin Low Dose) insulin NPH isoph U-100 human 100 20 - 40 unit SUBCUT BID #15 ml 04/21/20 12/23/20 Rx unit/mL (3 mL) subcutaneous pen (Humulin N NPH U-100 Insulin KwikPen) insulin regular human 100 unit/mL 10 - 30 unit SUBCUT TID #10 ml 04/21/20 12/23/20 Rx injection solution (Novolin R Regular U-100 Insulin) lisinopril 20 mg tablet 20 mg PO BID #30 tab 04/21/20 12/23/20 Rx metoprolol tartrate 100 mg tablet 150 mg PO BID #90 tab 08/25/20 12/23/20 Rx rivaroxaban 20 mg tablet (Xarelto) 20 mg PO QPM #30 tab 08/28/20 12/23/20 Rx furosemide 20 mg tablet (Lasix) 20 mg PO DAILY PRN #30 tab 10/03/20 12/23/20 Rx diltiazem HCl 240 mg 240 mg PO QAM 11/30/20 12/23/20 History capsule,extended release 24 hr benfotiamine 150 mg capsule 300 mg PO BID 12/23/20 12/23/20 History thiamine HCl (vitamin B1) 500 mg 500 mg PO DAILY 12/23/20 12/23/20 History tablet Past Med/Surg History Medical History (Updated 12/24/20 @ 01:02 by Laly Ascencio DO) Anticoagulant long-term use Anxiety Atrial fibrillation Dx >5 years ago - on xarelto - pcp manages a.fib Benign essential hypertension CAD (coronary artery disease) Depression DM type 2 (diabetes mellitus, type 2) IDDM Dyslipidemia Dyspnea on exertion GERD (gastroesophageal reflux disease) diet controlled History of 2019 novel coronavirus disease (COVID-19) hospitalized 04/2020 [facility] -- thought it was heart problems and oxygen level had dropped so he went to ER. History of blood clots superficial RLE within last month believes r/t recent Covid dx History of DVT (deep vein thrombosis) LLE - 3 weeks ago - dx at [facility] (believes r/t covid) s/p embolectomy with Dr. Hidalgo at [facility] [place] (hard of [place]) Myocardial infarct "in my mid 40s" Sciatica TMJ click never locked Surgical History History of cardiac catheterization >10 years ago - CT - [place] in [place] - 1 stent History of embolectomy 04/27/2020 [facility] with stenting of Left Superficial Femoral Artery History of heart artery stent x 1 History of hernia repair Rt inguinal History of non-cataract eye surgery Rt eye x 2 History of placement of ear tubes History of skin graft as a child History of tonsillectomy Family History Father Diabetes Cardiovascular disease Hypertension Bladder cancer Sister Cardiovascular disease Grandmother Diabetes Hypertension Other No family history of adverse response to anesthesia Social History Smoking Status: Former smoker Age Started Using Tobacco: 18; Age Quit Using Tobacco: 46; Second Hand Exposure: No; Hx Alcohol Use: No Hx Substance Use: No Preferred Language: Cymro Communication Ability: Effective Machine Quilt Stuffer Required: No Beliefs That Will Affect Care: None marital status: Current Living Situation: Alone Feels Safe at Home: Yes Childhood Exposure to Second-Hand Smoke: Yes Seatbelt Use: sometimes Sunscreen Use: No Assistive Devices: Glasses Review of Systems Review of Systems: All systems reviewed & are unremarkable except as noted in HPI & below Physical Exam Physical Exam: General: obese male patient resting comfortably, NAD, non- toxic in appearance, AA&O x 4 Skin: warm, dry, intact, no rashes or lesions HEENT: NC/AT, PERRL, EOMI, anicteric sclera, conjunctiva without injection, external ear normal to inspection and nontender, nares patent, moist mucus membranes, dentition intact, no oropharyngeal lesions, neck supple, trachea midline, no LAD, no thyromegaly, no JVD Heart: +S1/S2, irregularly irregular, no m/r/g Lungs: equal air entry bilaterally, no rales/rhonchi/wheezes Abd: +BS, soft, NT/ND, no masses/organomegaly/ascites, no CVA or suprapubic tenderness Ext: warm, 2+ pulses in UE/LE bilaterally, no clubbing/cyanosis or edema Neuro: nonfocal, patient AA&O x 4, speech intact, no facial droop, moving all extremities on command with equal strength 5/5 Results & Data Results & Data ([facility]) Vital Signs (Past 12 Hours) Vital Signs Temp Pulse Pulse Resp BP BP Pulse Ox 12/23/20 21:23 107 H 20 94 12/23/20 19:25 84 18 161/95 H 95 12/23/20 19:23 76 17 161/95 H 96 12/23/20 19:17 97 12/23/20 18:48 95 12/23/20 18:30 53 L 25 H 12/23/20 18:20 48 L 17 12/23/20 18:10 39 L 16 12/23/20 18:06 43 L 17 12/23/20 17:51 36.3 C L 48 L 18 148/83 H 95 Laboratory Results Laboratory Results WBC 10.24 K/uL (4.8-10.8) 12/23/20 18: RBC 5.30 M/uL (4.7-6.1) 12/23/20 18: Hgb 15.6 g/dL (14.0-18.0) 12/23/20 18: Hct 45.3 % (42-52) 12/23/20 18: MCV 85.5 fL (80-100) 12/23/20 18: MCH 29.4 pg (25-34) 12/23/20 18: MCHC 34.4 g/dL (32-36) 12/23/20: RDW Std Deviation 41.4 fL (36.4-46.3) 12/23/20 18: RDW Coeff of Scott 13.2 % (11.5-14.5) 12/23/20 18: Plt Count 227 K/uL (130-400) 12/23/20 18: MPV 10.8 fL (7.4-10.4) H 12/23/20 18: Immature Gran % (Auto) 0.2 % 12/23/20 18: Neut % (Auto) 62.3 % 12/23/20 18: Lymph % (Auto) 25.3 % 12/23/20 18: [place] % (Auto) 10.1 % 12/23/20 18: Eos % (Auto) 1.9 % 12/23/20: Baso % (Auto) 0.2 % 12/23/20: Neut # (Auto) 6.39 K/uL (1.4-6.5) 12/23/20 18: Lymph # (Auto) 2.59 K/uL (1.2-3.4) 12/23/20 18: [place] # (Auto) 1.03 K/uL (0.11-0.59) H 12/23/20 18: Eos # (Auto) 0.19 K/uL (0-0.5) 12/23/20 18: Baso # (Auto) 0.02 K/uL (0-0.2) 12/23/20 18: Immature Gran # (Auto) 0.02 K/uL (0.00-0.02) 12/23/20 18: PT 10.3 Seconds (9.0-12.0) 12/23/20 18: INR 1.0 (0.9-1.1) 12/23/20 18: APTT 31.3 Seconds (21.0-31.0) H 12/23/20 18: PTT Ratio 1.2 12/23/20 18: Sodium 134 mmol/L (136-145) L 12/23/20 18: Potassium 6.4 mmol/L (3.5-5.1) H* 12/23/20: Chloride 103 mmol/L (98-107) 12/23/20: Carbon Dioxide 27 mmol/L (21-32) 12/23/20: Anion Gap 4.0 (3-11) 12/23/20 18: BUN 45 mg/dl (7-18) H 12/23/20 18: Creatinine 2.28 mg/dl (0.6-1.4) H 12/23/20 18: Est Cr Clr Drug Dosing 50.6 ml/min 12/23/20 18: Est GFR ( Amer) 35.3 ml/min 12/23/20 18: Est GFR (Non-Af Amer) 30.5 ml/min 12/23/20 18: BUN/Creatinine Ratio 19.6 (10-20) 12/23/20 18: Glucose 230 mg/dl (70-99) H 12/23/20 18: POC Glucose 148 mg/dl (70-99) H 12/23/20: Calcium 9.0 mg/dl (8.5-10.1) 12/23/20 18: Phosphorus 4.8 mg/dl (2.5-4.9) 12/23/20 18: Magnesium 2.3 mg/dl (1.8-2.4) 12/23/20 18: Total Creatine Kinase 259 U/L (39-308) 12/23/20 18:29 Troponin I < 0.015 ng/ml (0-0.045) 12/23/20 18: Lipase 171 U/L (73-393) 12/23/20 18:29 Urine Color Yellow 12/23/20 21:32 Urine Appearance Clear (Clear) 12/23/20 21:32 Urine pH 5.0 (4.5-7.5) 12/23/20 21:32 Ur Specific [place] 1.019 (1.000-1.030) 12/23/20 21:32 Urine Protein 1+ (Negative) H 12/23/20 21:32 Urine Glucose (UA) 1+ (Negative) H 12/23/20 21:32 Urine Ketones Negative (Negative) 12/23/20 21:32 Urine Blood Negative (Negative) 12/23/20 21:32 Urine Nitrite Negative (Negative) 12/23/20 21:32 Urine Bilirubin Negative (Negative) 12/23/20 21:32 Urine Urobilinogen Negative (Negative) 12/23/20 21:32 Ur Leukocyte Esterase Negative (Negative) 12/23/20 21:32 Urine WBC (Auto) 1-5 /hpf (0-5) 12/23/20 21:32 Urine RBC (Auto) 0-4 /hpf (0-4) 12/23/20 21:32 U Hyaline Cast (Auto) 0 /lpf (0-5) 12/23/20 21:32 U Epithel Cells (Auto) 10-20 /lpf (0-5) H 12/23/20 21:32 Urine Bacteria (Auto) Negative (Negative) 12/23/20 21:32 COVID-19 Eval Order Covid19 at [facility] 12/23/20 20:06 SARS-CoV-2 (PCR) NEGATIVE (Negative) 12/23/20 20:06 Impressions Chest X-Ray 12/23/20 18:08 XR chest 2V PA/lateral CLINICAL HISTORY: Chest Pain COMPARISON STUDY: Chest radiograph April 25, 2020. FINDINGS: Lung volumes are normal. There is no pneumothorax or pleural effusion. There is no consolidation or evidence for pulmonary edema. Moderate cardiomegaly is noted. IMPRESSION: No acute cardiopulmonary findings. Moderate cardiomegaly. ACT 112: Negative or not required by law. Electronically signed by: Travis Dubose M.D. 12/23/2020 7:26 PM ECG Additional Comments: EKG with AF at 53bpm, normal axis, QRS=88, IOt=399, no acute ischemic changes Code Status & VTE Plan VTE Prophylaxis Plan VTE Prophylaxis will be ordered: Yes PG Care Time/CCT Total # of Minutes Spent Total Time Spent with Patient: Total time spent is greater than 50% in coordination of care (as documented) at patient's floor/unit and/or counseling patient: Coding Level of Care Code 87748 Initial Inpt Care Lvl 3 Diagnoses Acute hyperkalemia E87.5 GENTRY (acute kidney injury) N17.9 Atrial fibrillation I48.91 Diabetes mellitus type 2, uncontrolled E11.65 DVT (deep venous thrombosis) I82.409 Benign essential hypertension I10 CAD (coronary artery disease) I25.10
[2020-12-23 22:02] LABS: Appearance Urine Clear (Clear); Bacteria Urine Automated Negative (Negative); Bilirubin Urine Negative (Negative); Blood Urine Negative (Negative); Color Urine Yellow; Glucose Urine UA 1+ (Negative); Ketones Urine Negative (Negative); Leukocyte Esterase Urine Negative (Negative); Nitrite Urine Negative (Negative); Protein Urine 1+ (Negative); RBC Urine Automated 0-4 /hpf (0-4); Specific Gravity Urine 1.019 (1.000-1.030); Urobilinogen Urine Negative (Negative)
[2020-12-23 22:33] LABS: Cast Urine Automated 0 /lpf (0-5)
[2020-12-23] MEDS ORDERED: GLUCOSE 10 TABS/TUBE PO PRN (22:41)
[2020-12-23] MEDS ORDERED: DEXTROSE 50% 50 ML SYRINGE IV PRN (22:41)
[2020-12-23] MEDS ORDERED: GLUCAGON FOR INJ 1 MG VIAL SQ PRN (22:41)
[2020-12-23] MEDS ORDERED: GLUCOSE 40% GEL 15 GM TUBE PO PRN (22:41)
[2020-12-23] MEDS ORDERED: CARBOHYDRATES FOR HYPOGLYCEMIA PO PRN (22:41)
[2020-12-23] MEDS ORDERED: ACETAMINOPHEN 325 MG TAB PO PRN (22:41)
[2020-12-23] MEDS ORDERED: ONDANSETRON INJ 2 MG/ML 2 ML VIAL IV PRN (22:41)
[2020-12-23 23:31] LABS: Creatine Kinase 259 U/L (39-308); Phosphorus 4.8 mg/dl (2.5-4.9)
[2020-12-24] MEDS ORDERED: PATIROMER CALCIUM SORBITEX 8.4 GM PACK PO STA (00:46)
[2020-12-24] MEDS ORDERED: SODIUM CHLORIDE 0.9% 1000ML 1,000 ML IV SCH (01:15)
[2020-12-24 01:36] LABS: BUN Creatinine Ratio 24.9 (10-20); Calcium 8.9 mg/dl (8.5-10.1); Creatinine Clr Calc Pharmacy 68.3 ml/min; Est GFR (African American) 50.8 ml/min; Est GFR (Non-African American) 43.8 ml/min; Potassium 4.4 mmol/L (3.5-5.1)
[2020-12-24] MEDS: INSULIN ASPART 100 UNITS/ML 3 ML PEN SC SCH ×3 (08:31→17:23)
[2020-12-24 08:39] LABS: Creatinine Urine Random 64.3 mg/dl
--- NOTE | 2020-12-24 08:49 | Ultrasound Report ---
RENAL ULTRASOUND CLINICAL HISTORY: Acute kidney injury. COMPARISON STUDY: Right upper quadrant ultrasound August 28, 2020. TECHNIQUE: Sonography of the kidneys and the urinary bladder was performed. FINDINGS: Right kidney measures 13.8 cm in maximal dimension and the left measures 12.7 cm. There is no hydronephrosis. There is a 2.3 cm cyst within the right renal sinus. This may reflect a parapelvic cyst. No renal calculus or mass is identified by sonography. Both ureteral jets were identified. Inc idental note is made of increased hepatic echogenicity. This suggests hepatic steatosis. IMPRESSION: No hydronephrosis. ACT 112: Negative or not required by law. Electronically signed by: Travis Dubose M.D. 12/24/2020 8:47 AM
[2020-12-24 08:53] LABS: Basophils # (auto) 0.02 K/uL (0-0.2); Basophils % (auto) 0.2 %; Eosinophils # (auto) 0.27 K/uL (0-0.5); Eosinophils % (auto) 3.1 %; Hematocrit (blood only) 47.7 % (42-52); Hemoglobin 16.8 g/dL (14.0-18.0); Immature Granulocytes # (auto) 0.03 K/uL (0.00-0.02); Immature Granulocytes % (auto) 0.3 %; Lymphocytes # (auto) 2.09 K/uL (1.2-3.4); Mean Corpuscular Hemoglobin 29.6 pg (25-34); Mean Corpuscular Hgb Conc 35.2 g/dL (32-36); Mean Corpuscular Volume 84.1 fL (80-100); Mean Platelet Volume 10.1 fL (7.4-10.4); Monocytes # (auto) 0.95 K/uL (0.11-0.59); Monocytes % (auto) 10.9 %; Neutrophils # (auto) 5.36 K/uL (1.4-6.5); Neutrophils % (auto) 61.5 %; Platelet Count 189 K/uL (130-400); RDW Standard Deviation 39.4 fL (36.4-46.3); Red Blood Count 5.67 M/uL (4.7-6.1); White Blood Count 8.72 K/uL (4.8-10.8)
[2020-12-24] MEDS ORDERED: METOPROLOL TARTRATE 50 MG TAB PO SCH (09:00)
[2020-12-24] MEDS ORDERED: INSULIN GLARGINE SOLOSTAR 100 UNITS/ML 3 ML PEN SC SCH (09:00)
[2020-12-24] MEDS ORDERED: RIVAROXABAN 15 MG TAB PO SCH (09:00)
[2020-12-24] MEDS ORDERED: PATIROMER CALCIUM SORBITEX 8.4 GM PACK PO SCH (09:00)
[2020-12-24 09:21] LABS: Albumin Level 3.5 gm/dl (3.4-5.0); BUN Creatinine Ratio 22.1 (10-20); Bilirubin,Total 0.8 mg/dl (0.2-1); Calcium 9.4 mg/dl (8.5-10.1); Creatinine Clr Calc Pharmacy 74.4 ml/min; Est GFR (African American) 56.4 ml/min; Est GFR (Non-African American) 48.6 ml/min; Total Protein 7.4 gm/dl (6.4-8.2)
[2020-12-24 09:51] LABS: Potassium 4.6 mmol/L (3.5-5.1)
[2020-12-24 09:56] LABS: Bilirubin Direct 0.1 mg/dl (0-0.2)
--- NOTE | 2020-12-24 11:49 | Electrocardiogram Report ---
Test Reason : Blood Pressure : / mmHG Vent. Rate : 053 BPM Atrial Rate : 375 BPM P-R Int : 000 ms QRS Dur : 088 ms QT Int : 404 ms P-R-T Axes : 000 -23 008 degrees QTc Int : 379 ms Atrial fibrillation with slow ventricular response Abnormal ECG When compared with ECG of 25-APR-2020 18:36, Vent. rate has decreased BY 41 BPM Nonspecific T wave abnormality, improved in Lateral leads Confirmed by Greg Lou ([id number]) on 12/24/2020 11:49:23 AM Referred By: REFERRED SELF Confirmed By:Greg Lou
[2020-12-24 13:12] LABS: Calcium 9.2 mg/dl (8.5-10.1); Creatinine Clr Calc Pharmacy 76.9 ml/min; Est GFR (African American) 58.6 ml/min; Est GFR (Non-African American) 50.6 ml/min
[2020-12-24] MEDS ORDERED: METOPROLOL TARTRATE 50 MG TAB PO STA (14:47)
--- NOTE | 2020-12-24 19:29 | Discharge Summary ---
Date of Service December 24, 2020 Admission HPI Per Admitting Provider Luis E Bush is a 60yo male with history of HTN, HLP, DM, CAD s/p stent placement, AF presenting with 1 day of weakness, fatigue, SOB and near syncope. Checked his HR today and was found to be in the 40's Decreased UOP this evening with a weak, dark stream. He denies dysuria, hematuria, nausea, vomiting. Stools have been slightly loose. Has occasional LE edema but overall denies weight gain, orthopnea. Has occasional exertional chest tightness and DO. Has history of CAD s/p stent placement 15 years ago. He does not follow with Cardiology. Has not had a recent stress test. Patient has been taking herbal supplements at home for the last three weeks. He started Vitamin B1 and Benfotiamine to help with is LLE neuropathy. Patient had Covid-19 in April 2020 and developed VTE of LLE as well as arterial occlusion. Patient had femoral bypass performed by Dr. Hidalgo on 04/26. He has been experiencing neuropathic symptoms since. He has also been making a drink of lemon juice, olive oil, cayenne pepper, tumeric, garlic and apple and drinking it on most days of the week. Principal Diagnosis Hyperkalemia, bradycardia, GENTRY Discharge Exam Vitals noted. In general he is awake and alert pleasant no distress. HEENT normocephalic atraumatic mucous membranes moist. Breathing unlabored no acces michael muscle use good effort. Skin shows no rashes no pallor or icterus. Neuro without focal deficits. Walking around in the room with no distress normal symmetric gait. Discharge Data Allergies Allergy/AdvReac Type Severity Reaction Status Date / Time pravastatin AdvReac Mild Muscle Verified 12/23/20 18:37 Tightness simvastatin AdvReac Mild Muscle Verified 12/23/20 18:37 Tightness Consultations 12/23/20 19:35 ED Decision to Admit Stat Ordered Studies 12/23/20 21:25 US renal/blad retro comp Routine Hospital Course (1) Acute hyperkalemia: Presented feeling weak and fatigued with the milieu of bradycardia, GENTRY, and hyperkalemia. All three seem to be playing off of each otherwe discussed th e possibility of getting dehydrated leading to the GENTRY, leading to med accumulation hyperkalemia and then med accumulation and hyperkalemia creating the bradycardiabut this seemed unlikely because he notes that he probably drinks about a half a gallon of water a day. We discussed the possibility if he had major lifestyle change and weight loss of his meds essentially being a "higher effective dose" leading to bradycardiadecreased cardiac output from decreased rateand then GENTRY and hyperkalemiabut this seems unlikely given that he is not lost much weight lately. Lastly we discussed the possibility that hyperkalemia led to rhythm issues/potentiation of his rate controlling meds leading to the bradycardiaand these two that led to the GENTRY. He actually takes quite a few supplements and natural remedies, some of which might have a decent amount of potassium in itit was not entirely clear. -Situation improved with fluids, appears stable for home -See below as it relates to the A. fib and GENTRY -We discussed that there are three main groups of supplements/natural remedies that he takesand that it would make sense to go stepwise to see if any of them were the culprit for his potassiumthis week he may resume his all of oil and lemon juice, and anticipate a basic metabolic panel by the end of the week, the next week he could resume his turmeric checking a BMP by the end of that week as well, and then finally, he could consider resuming his cocktail that includes several natural and herbal substances which is my highest suspicion for having a lot of potassiumand check a basic metabolic panel shortly after resuming. (2) GENTRY (acute kidney injury): See above. Fortunately improved with fluids. Baseline creatinine about 1.3, now 1.5. Drinking well. (3) Atrial fibrillation: Patient bradycardic on arrival, because of this metoprolol and diltiazem were heldfairly quickly his A. fib increased to being uncontrolled. Given that he came in quite bradycardic and symptomatic with the bradycardia, I did not want to go the hallway back to his prior dosing, and resuming his metoprolol while keeping him off diltiazem seems to have affected reasonable rate control -We discussed what to watch for and home monitoring, and even when he was more tachycardic earlier today he was completely asymptomatic -We will send him home on metoprolol 100 mg twice daily, holding diltiazem -He is to check his pulse 3-4 times a day and follow-up with his PCP in about 2 days for ongoing titration of meds if needed -He is to return for further evaluation should he have any worrisome signs or symptoms (outlined) (4) Diabetes mellitus type 2, uncontrolled: Ongoing outpatient managementof note his A1c has shown a good steady improvement over the last few years. Most recent was 7.7 in July. Discussed the importance of healthy lifestyle overall. (5) DVT (deep venous thrombosis): In setting of Covid -Continue Rivaroxaban (6) Benign essential hypertension: Other than the reduced dose of metoprolol, and holding off on diltiazemHome meds (7) CAD (coronary artery disease): Chronic. S/p stent x 1 15 years ago. Patient did endorse some exertional chest tightness and dyspnea on occasion during admission assessment. Follow-up with PCP in this regard, consider stress testing, did not show signs or symptoms of unstable angina otherwise Stable for home, close PCP follow-up Total Time Total Time Spent Total Time Spent (In Minutes): Greater than 30 Discharge Plan Discharge Items Patient Disposition: Home - Self-Care Reason For Visit: GENTRY,HYPERKALEMIA Discharge Diagnosis: high potassium, slow heart rate - see below Activity: Resume your previous activity Non-emergency contact: Primary Care Provider Call non-emergency contact if: you have any medication questions and your symptoms worsen Follow-up/Referrals: Nadir Lowry MD [Primary Care Provider] - Diet: Carb Consistent or DM2 Addtl Attending Provider Instructions: high potassium, elevated creatinine (transiently impaired kidney function) and slow heart rate ---as we discussed, all three things were really playing off of eachother. Since you were drinking enough that getting dehydrated is really unlikely to have been "the spark that started the fire," and since you hadn't lost weight or had any real change in your body in a way that would lead to the heart rate medications hitting you harder than they used to, it is most likely that high potassium then potentiated effects of your heart rate meds, leading to slow heart rate, which then caused less bloodflow, which then led to the increase in creatinine. ---regardless, with time and IV fluids things have improved. your potassium levels are now normal and your creatinine is down to 1.5 (it was 2.28 when you got admitted last night) ---because your heartrate was low, on admission we held your metoprolol and diltiazem, your heart rates actually have gone from too slow to a little too fast - but since you're feeling fine, it's OK to let you go home with this as a "work in progress" and close follow up with Dr Lowry (see below under afib) ---we'll have you hold off on the diltiazem, take the metoprolol at 100mg twice a day, and follow closely with Dr Lowry --> with the anticipation of weekly labs for the short but foreseeable future afib -it's most likely that you went too slow because of the whole situation between the medications, the high potassium, and the elevated creatinine, but also it's quite possible that your meds are just stronger than you need them to be anymore -for now, leave the diltiazem on the shelf, and we'll have you take the metoprolol 100mg twice a day -check your heart rate periodically through the day ---> as we discussed, atrial fibrillation "confuses" many home blood pressure cuffs, so it'll be better if you just feel your pulse and count it out for a minute -- maybe 3-4 times through the day -follow up with Dr Lowry by Friday to discuss how you're feeling and what your heartrates have been doing - so that if things are still too fast he can guide either increasing the metoprolol again or adding back some diltiazem; if things are too slow he can guide you on reducing the metoprolol further; or if things are ok then it'll be easy to just keep the dosing the same -if you feel palpitations or heart racing - obviously call sooner so we can increase meds and slow things down; if you feel really bad (like chest pressure or shortness of breath) then get seen right away (this would be really unlikely to happen, but those kinds of symptoms would warrant emergent evaluation) high potassium -i'm pretty suspicious that the supplements that you're taking may be loading you with more potassium than your kidneys are able to excrete. high potassium levels can lead to heart rhythm problems - this time it seems like it potentiated the meds some leading to slow heart rates, but textbook rhythm problems with high potassium can actually lead to fatal rhythms -- so this is stuff we'll want to make sure doesn't happen again -this week, just do the olive oil and chandrakant - and have Dr Lowry check labs at the end of the week; if your levels are good, then the following week it would be reasonable to resume the turmeric -- and check labs after being back on it for several days (so probably labs again at the end of next week). finally, if your potassium levels are still good on those, then it would be reasonable to add back in the mixture that includes the apples/etc (which is my biggest suspicion of the culprit) and check labs again a few days after that. doing it this way we can look stepwise to see what the culprit might be rather than stopping everything; and also then we can watch closely in case there was some other reason your potassium went up - and see it climbing before it becomes a big problem. make sure you're getting enough to drink - somewhere around 60-80 ounces of fluid a day minimum; more if you're in the heat/etc and as we discussed - supplements and "nutritional tricks" can be helpful - but the biggest thing that gets people healthy in "alternative" medicine is really just the healthy eating in general -- so give yourself credit where it's due! to do: -take metoprolol 100mg twice a day -don't take diltiazem -check heart rate 3-4 times a day -follow up with Dr Lowry in about 2 days -labs ([facility]) weekly as above starting this friday Pending Studies at Discharge: No Stand-Alone Forms: My [facility] [employer], Smoking Cessation Medications and DC Order Prescriptions: Continued Humulin N NPH Insulin KwikPen 100 unit/mL (3 mL) insulin pen 20 - 40 unit SUBCUT BID Qty: 15 RF: 5 Novolin R Regular U-100 Insuln 100 unit/mL solution 10 - 30 unit subcut TID Qty: 10 RF: 5 lisinopril 20 mg tablet 20 mg PO BID Qty: 30 RF: 5 Xarelto 20 mg tablet 20 mg PO QPM Qty: 30 RF: 5 furosemide [Lasix] 20 mg tablet 20 mg PO DAILY PRN (Reason: edema) Qty: 30 RF: 2 metoprolol tartrate 100 mg tablet 150 mg PO BID Qty: 90 RF: 5 diltiazem HCl 240 mg capsule,extended release 24hr 240 mg PO QAM RF: 0 aspirin [Aspirin Low Dose] 81 mg Tablet,Delayed Release (Dr/Ec) 81 mg PO QPM RF: 0 thiamine HCl (vitamin B1) 500 mg Tablet 500 mg PO DAILY RF: 0 Discontinued benfotiamine 150 mg Capsule 300 mg PO BID RF: 0 Discharge Orders: Discharge Order (Routine); Ordered 12/24/20 Ordered By: Will Roque Admission Data Admit Date/Time: 12/23/20 21:25 Attending Provider: Will Roque Admit Provider: Laly Ascencio Primary Care Provider: Nadir Lowry Other Providers: Laly Ascencio Other Interventions: Discharge Summary Assessment (RN) Last Done: 12/24/20 17:39 Coding Level of Care Code D/C DAY MANAGEMENT >30 MINS Diagnoses Acute hyperkalemia E87.5 GENTRY (acute kidney injury) N17.9 Atrial fibrillation I48.91 Diabetes mellitus type 2, uncontrolled E11.65 DVT (deep venous thrombosis) I82.409 Benign essential hypertension I10 CAD (coronary artery disease) I25.10
[2020-12-24] MEDS ORDERED: ASPIRIN 81 MG ECTAB PO SCH (21:00)
== END 2020-12-24 18:01 | disposition home or self-care (01) | DRG 683 ==
LOC: ED 17:49 → SUATTDRO 21:25 → 2N 21:25